=== PATIENT | male | born 1960 | race Caucasian/White ===

== ENCOUNTER 2018-05-03 13:55 | Inpatient (IN) | payer BC ==
--- NOTE | 2018-05-03 14:10 | ED ---
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 Moderate in severity dull in nature he states he had some tightness in his throat also. He states he been having episodes like this for the past 2 or 3 days with exertion or with stress. He has no personal history of heart disease he had heart disease and his family. 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 Patient had no fevers chills nausea vomiting sweats or other symptoms he is currently pain-free at this time. He was brought in by EMS. He was given 324 mg of aspirin in route.. MD Complaint: chest pain - Related Data Home Medications Medication Instructions Recorded Confirmed Aspirin 325 mg PO W/SUPPER 05/03/18 05/03/18 Multivitamins, Thera [Multivitamin 1 tab PO W/SUPPER 05/03/18 05/03/18 (formulary)] Naproxen 375 mg PO BID 05/03/18 05/03/18 Omeprazole 20 mg PO W/SUPPER 05/03/18 05/03/18 Simvastatin 40 mg PO W/SUPPER 05/03/18 05/03/18 Allergies Allergy/AdvReac Type Severity Reaction Status Date / Time No Known Allergies Allergy Verified 05/03/18 15:52 Review of Systems ROS Statement: Those systems with pertinent positive or pertinent negative responses have been documented in the HPI. ROS Other: All systems not noted in ROS Statement are negative. EKG Findings - EKG Results: EKG: interpreted by ERMD, sinus rhythm (Sinus rhythm first-degree AV block rate was 64. Interval 250 to QRS 1:30 QT since QTC 364/375 nonspecific interventricular conduction block) Past Medical History Past Medical History: No Reported History History of Any Multi-Drug Resistant Organisms: None Reported Past Surgical History: Orthopedic Surgery Additional Past Surgical History / Comment(s): right knee Past Psychological History: No Psychological Hx Reported Smoking Status: Never smoker Past Alcohol Use History: None Reported Past Drug Use History: None Reported General Exam - General Exam Comments Initial Comments: This is a well-developed well-nourished awake alert oriented 3 male Limitations: no limitations General appearance: alert, in no apparent distress Head exam: Present: atraumatic, normocephalic, normal inspection Eye exam: Present: normal appearance, PERRL, EOMI. Absent: scleral icterus, conjunctival injection, periorbital swelling ENT exam: Present: normal exam, mucous membranes moist Neck exam: Present: normal inspection, full ROM, other (No stridor JVD or bruits ). Absent: tenderness, meningismus, lymphadenopathy Respiratory exam: Present: normal lung sounds bilaterally. Absent: respiratory distress, wheezes, rales, rhonchi, stridor Cardiovascular Exam: Present: regular rate, normal rhythm, normal heart sounds. Absent: systolic murmur, diastolic murmur, rubs, gallop, clicks GI/Abdominal exam: Present: soft, normal bowel sounds. Absent: distended, tenderness, guarding, rebound, rigid Extremities exam: Present: normal inspection, full ROM, normal capillary refill. Absent: tenderness, pedal edema, joint swelling, calf tenderness Back exam: Present: normal inspection Neurological exam: Present: alert, oriented X3, CN II-XII intact Psychiatric exam: Present: normal affect, normal mood Skin exam: Present: warm, dry, intact, normal color. Absent: rash Course Vital Signs 05/03/18 05/03/18 05/03/18 13:57 14:06 15:29 Temperature 98.7 F Pulse Rate 71 62 Respiratory 18 16 18 Rate Blood Pressure 168/107 149/89 O2 Sat by Pulse 98 99 Oximetry - Reevaluation(s) Reevaluation #1: 05/03/18 15:57 Evaluation the patient he has no further chest pain. Chest Pain MDM - [facility] Patient has had for over the chest pain however his troponin is elevated. The presentation is consistent with unstable angina and elevated troponin. Patient will be admitted I did discuss case with him and his family as well as with Dr. Rhoades IV heparin will be started nitroglycerin will be started Critical Care Time Critical Care Time: Yes Critical Care Time: 31 minutes of critical care time which includes initial presentation with history physical labs x-rays per minute review. Discussed with the admitting physician admission orders and documentation of the above Disposition Clinical Impression: Unstable angina pectoris, Acute coronary syndrome Disposition: ADMITTED IP TO THIS HOSP Condition: Stable Referrals: Jose J Clifford MD [Primary Care Provider] - 1-2 days
--- NOTE | 2018-05-03 14:35 | XR ---
EXAMINATION TYPE: XR chest 2V DATE OF EXAM: 05/03/2018 COMPARISON: NONE HISTORY: Chest pain TECHNIQUE: Frontal and lateral views of the chest are obtained. FINDINGS: There is no focal air space opacity, pleural effusion, or pneumothorax seen. The cardiac silhouette size is within normal limits. The osseous structures are intact. There are cardiac leads present. Patient is rotated. Prominent lung volumes suggest underlying COPD. IMPRESSION: No acute cardiopulmonary process.
[2018-05-03 14:41] LABS: Basophils # (A) 0.1 k/uL (0-0.2); Basophils % (A) 1 %; Eosinophils # (A) 0.2 k/uL (0-0.7); Eosinophils % (A) 2 %; HCT 51.5 % (39.0-53.0); HGB 17.1 gm/dL (13.0-17.5); Lymphocytes # (A) 4.7 k/uL (1.0-4.8); Lymphocytes % (A) 46 %; MCH 29.6 pg (25.0-35.0); MCHC 33.2 g/dL (31.0-37.0); Mean Platelet Volume 9.5; Monocytes # (A) 0.7 k/uL (0-1.0); Monocytes % (A) 7 %; Neutrophils # (A) 4.2 k/uL (1.3-7.7); Neutrophils % (A) 42 %; Platelet Count 187 k/uL (150-450); RBC 5.79 m/uL (4.30-5.90); RDW 13.2 % (11.5-15.5); WBC 10.2 k/uL (3.8-10.6)
[2018-05-03 14:48] LABS: ALT 35 U/L (21-72); AST 59 U/L (17-59); Albumin 4.7 g/dL (3.5-5.0); Alkaline Phosphatase 115 U/L (38-126); Anion Gap 10 mmol/L; Blood Urea Nitrogen 21 mg/dL (9-20); Calcium 9.7 mg/dL (8.4-10.2); Carbon Dioxide 22 mmol/L (22-30); Chloride 110 mmol/L (98-107); Glucose 146 mg/dL (74-99); Sodium 142 mmol/L (137-145); Total Bilirubin 1.7 mg/dL (0.2-1.3); Total Protein 7.7 g/dL (6.3-8.2)
[2018-05-03 14:51] LABS: Potassium 5.2 mmol/L (3.5-5.1)
[2018-05-03 14:54] LABS: D-Dimer 0.29 mg/L FEU (<0.60); INR 0.9 (<1.2); Partial Thromboplastin Time 24.9 sec (22.0-30.0); Prothrombin Time 10.1 sec (9.0-12.0)
[2018-05-03] MEDS ORDERED: HEPARIN SODIUM,PORCINE 5,000 UNIT/ML 1 ML VIAL IV ONE (15:56)
[2018-05-03] MEDS ORDERED: HEPARIN SODIUM,PORCINE 5,000 UNIT/ML 1 ML VIAL IV PRN (15:56)
[2018-05-03] MEDS ORDERED: NITROGLYCERIN SL TABS 0.4 MG TAB SUBLINGUAL PRN (16:00)
[2018-05-03] MEDS ORDERED: HEPARIN SOD,PORK IN 0.45% NACL 25,000 UNIT in 0.45% NACL 1 250ML.BAG IV SCH (16:00)
[2018-05-03] MEDS ORDERED: SODIUM CHLORIDE 0.9% 1,000 ML IV SCH (16:00)
[2018-05-03] MEDS ORDERED: ATORVASTATIN 20 MG TAB PO SCH (17:30)
[2018-05-03] MEDS: NITROGLYCERIN OINT 1 INCH/GM PACKET TOPICAL SCH ×2 (17:59→23:15)
[2018-05-03] MEDS: PANTOPRAZOLE 40 MG TABLET PO SCH (17:59)
[2018-05-03] MEDS: MULTIVITAMINS, THERA 1 EACH TAB PO SCH (17:59)
[2018-05-03] MEDS ORDERED: NAPROXEN 250 MG TAB PO SCH (21:00)
[2018-05-04] MEDS: NITROGLYCERIN OINT 1 INCH/GM PACKET TOPICAL SCH (05:29)
[2018-05-04 05:30] LABS: HCT 43.6 % (39.0-53.0); HGB 14.5 gm/dL (13.0-17.5); MCH 29.6 pg (25.0-35.0); MCHC 33.2 g/dL (31.0-37.0); MCV 89.3 fL (80.0-100.0); Mean Platelet Volume 8.7; Platelet Count 164 k/uL (150-450); RBC 4.88 m/uL (4.30-5.90); RDW 13.4 % (11.5-15.5); WBC 13.2 k/uL (3.8-10.6)
[2018-05-04 05:57] LABS: Basophils # (M) 0.13 k/uL (0-0.2); Lymphocytes # (M) 5.41 k/uL (1.0-4.8); Monocytes # (M) 1.32 k/uL (0-1.0); Neutrophils # (M) 5.94 k/uL (1.3-7.7); Neutrophils % (M) 45 %; Nucleated Red Blood Cells 0 /100 WBC (0-0); Total Cells Counted 100
[2018-05-04 05:59] LABS: Cholesterol 136 mg/dL (<200); HDL Cholesterol 36 mg/dL (40-60); LDL Cholesterol,Calculated 69 mg/dL (0-99); Triglycerides 154 mg/dL (<150)
[2018-05-04] MEDS ORDERED: ASPIRIN 325 MG TAB PO SCH (09:00)
--- NOTE | 2018-05-04 09:00 | P.CRDCN ---
History of Present Illness Consult date: 05/04/18 Requesting physician: Luigi Rhoades Consult reason: chest pain Chief complaint: Chest pain History of present illness: This is a pleasant 57-year-old gentleman with history of hyperlipidemia, family history of premature coronary artery disease in his father who had bypass surgery at the age of 53, history of GERD, nondiabetic, no prior history of hypertension, he is a nonsmoker. He presents to the hospital with symptoms of left arm discomfort, and discomfort at the base of his neck and up into his throat, states that he's been getting these symptoms off and on. They, mostly with exertion and that side with rest. He does have associated shortness of breath, and yesterday was diaphoretic. His EKG initially showed a normal sinus rhythm with no acute changes, subsequent EKG which was performed this morning showed normal sinus rhythm with ST-T wave changes noted in the anterior leads. Chest x-ray did not reveal any acute process. Blood pressure on arrival 168/107, heart rate in the 70s, 98% on room air. Let pressure this morning 122/60 with a heart rate in the 50s, 95% on room air. White blood cell count 10.2 on admission, 13.2 this morning, hemoglobin 14.5, platelet count 164. His d-dimer is negative. Sodium 142, potassium 5.2, BUN 21, creatinine 1.04. Troponins 0.07, 0.2, 0.197, 0.110. Cholesterol 136, LDL 69, triglycerides 154 and HDL. At the time of my examination this morning, patient is currently chest pain-free. Past Medical History Past Medical History: Hyperlipidemia Additional Past Medical History / Comment(s): Heart burn History of Any Multi-Drug Resistant Organisms: None Reported Past Surgical History: Orthopedic Surgery Additional Past Surgical History / Comment(s): right knee X2 partial replacement Past Anesthesia/Blood Transfusion Reactions: No Reported Reaction Past Psychological History: No Psychological Hx Reported Smoking Status: Never smoker Past Alcohol Use History: None Reported Past Drug Use History: None Reported - Past Family History Father Family Medical History: CVA/TIA Additional Family Medical History / Comment(s): triple bypass surgery Mother Family Medical History: CVA/TIA, Myocardial Infarction ([place]), Renal Disease Additional Family Medical History / Comment(s): hemodialysis Medications and Allergies Home Medications Medication Instructions Recorded Confirmed Type Aspirin 325 mg PO W/SUPPER 05/03/18 05/03/18 History Multivitamins, Thera [Multivitamin 1 tab PO W/SUPPER 05/03/18 05/03/18 History (formulary)] Naproxen 375 mg PO BID 05/03/18 05/03/18 History Omeprazole 20 mg PO W/SUPPER 05/03/18 05/03/18 History Simvastatin 40 mg PO W/SUPPER 05/03/18 05/03/18 History Allergies Allergy/AdvReac Type Severity Reaction Status Date / Time No Known Allergies Allergy Verified 05/03/18 15:52 Physical Exam Vitals: Vital Signs Temp Pulse Pulse Resp BP BP Pulse Ox 05/04/18 07:35 95 05/04/18 04:00 52 L 16 122/66 95 05/03/18 23:53 57 L 05/03/18 23:48 57 L 16 147/78 95 05/03/18 20:00 98.8 F 61 16 128/71 93 L 05/03/18 17:08 98.7 F 58 L 16 143/81 95 05/03/18 16:38 98.4 F 69 18 140/85 99 05/03/18 15:29 62 18 149/89 99 05/03/18 14:06 16 05/03/18 13:57 98.7 F 71 18 168/107 98 Intake and Output 05/03/18 05/04/18 05/04/18 22:59 06:59 14:59 Intake Total 222 131.5 Balance 222 131.5 Intake: Intake, IV Titration 131.5 Amount Heparin Sod,Pork in 0.45% 131.5 NaCl 25,000 unit In 0.45 % NaCl 1 250ml.bag @ 8. 749 UNITS/KG/HR 10 mls/hr IV .Q24H [facility] Rx#: [id number] Oral 222 Other: Voiding Method Toilet # Voids 4 Weight 117.9 kg PHYSICAL EXAMINATION: GENERAL: 57-year-old gentleman in no acute distress at the time of my examination HEENT: Head is atraumatic, normocephalic. Pupils equal, round. Sclera anicteric. Conjunctiva are clear. Mucous membranes of the mouth are moist. Neck is supple. There is no elevated jugular venous pressure. No carotid bruit is heard. HEART EXAMINATION: Heart S1, S2 normal. No murmur or gallop heard. CHEST EXAMINATION: Lungs are clear to auscultation and precussion. No chest wall tenderness is noted on palpation or with deep breathing. ABDOMEN: Soft, nontender. Bowel sounds are heard. No organomegaly noted. EXTREMITIES: 2+ peripheral pulses with no evidence of peripheral edema and no calf tenderness noted. NEUROLOGIC patient is awake, alert and oriented 3 . . Results 05/04/18 05:11 05/03/18 14:16 Cardiac Enzymes 05/03/18 05/03/18 05/03/18 Range/Units 14:16 14:16 16:59 AST 59 (17-59) U/L Troponin I 0.076 H* 0.200 H* (0.000-0.034) ng/mL 05/03/18 05/04/18 Range/Units 22:29 05:11 AST (17-59) U/L Troponin I 0.197 H* 0.110 H* (0.000-0.034) ng/mL Coagulation 05/03/18 05/03/18 05/04/18 Range/Units 14:16 22:29 05:11 PT 10.1 (9.0-12.0) sec APTT 24.9 46.9 H 46.9 H (22.0-30.0) sec Lipids 05/04/18 Range/Units 05:11 Triglycerides 154 H (<150) mg/dL Cholesterol 136 (<200) mg/dL HDL Cholesterol 36 L (40-60) mg/dL CBC 05/03/18 05/04/18 Range/Units 14:16 05:11 WBC 10.2 13.2 H (3.8-10.6) k/uL RBC 5.79 4.88 (4.30-5.90) m/uL Hgb 17.1 14.5 (13.0-17.5) gm/dL Hct 51.5 43.6 (39.0-53.0) % Plt Count 187 164 (150-450) k/uL Comprehensive Metabolic Panel 05/03/18 Range/Units 14:16 Sodium 142 (137-145) mmol/L Potassium 5.2 H (3.5-5.1) mmol/L Chloride 110 H (98-107) mmol/L Carbon Dioxide 22 (22-30) mmol/L BUN 21 H (9-20) mg/dL Creatinine 1.04 (0.66-1.25) mg/dL Glucose 146 H (74-99) mg/dL Calcium 9.7 (8.4-10.2) mg/dL AST 59 (17-59) U/L ALT 35 (21-72) U/L Alkaline Phosphatase 115 (38-126) U/L Total Protein 7.7 (6.3-8.2) g/dL Albumin 4.7 (3.5-5.0) g/dL Current Medications Generic Name Dose Route Start Last Admin Trade Name Freq PRN Reason Stop Dose Admin Aspirin 325 mg 05/04/18 09:00 Aspirin PO DAILY [facility] Atorvastatin Calcium 20 mg 05/03/18 17:30 05/03/18 17:59 Lipitor PO 20 mg W/SUPPER JONAS Administration Heparin Sodium (Porcine) 0 unit 05/03/18 15:56 Heparin IV PER PROTOCOL PRN Low PTT Protocol Heparin Sodium/Sodium Chloride 250 mls @ 10 mls/hr 05/03/18 16:00 05/04/18 05 :39 25,000 unit/ Sodium Chloride IV 10.749 units/kg/hr .Q24H JONAS 12.28 mls/hr Titration Protocol 8.749 UNITS/KG/HR Sodium Chloride 1,000 mls @ 20 mls/hr 05/03/18 16:00 05/03/18 16:38 Saline 0.9% IV 20 mls/hr .Q24H JONAS Administration Multivitamins 1 each 05/03/18 17:30 05/03/18 17:59 Theragran PO 1 each W/SUPPER JONAS Administration Nitroglycerin 1 inch 05/03/18 18:00 05/04/18 05:29 Nitro-Bid Oint TOPICAL Not Given Q6HR [facility] Nitroglycerin 0.4 mg 05/03/18 16:00 Nitrostat SUBLINGUAL Q5M PRN Chest Pain Pantoprazole Sodium 40 mg 05/03/18 17:30 05/03/18 17:59 Protonix PO 40 mg W/SUPPER JONAS Administration Intake and Output 05/03/18 05/04/18 05/04/18 22:59 06:59 14:59 Intake Total 222 131.5 Balance 222 131.5 Intake: Intake, IV Titration 131.5 Amount Heparin Sod,Pork in 0.45% 131.5 NaCl 25,000 unit In 0.45 % NaCl 1 250ml.bag @ 8. 749 UNITS/KG/HR 10 mls/hr IV .Q24H [facility] Rx#: [id number] Oral 222 Other: Voiding Method Toilet # Voids 4 Weight 117.9 kg 05/04/18 05:11 05/03/18 14:16 EKG Interpretations (text) Initial EKG showed normal sinus rhythm with no acute changes. Subsequent EKG showed normal sinus rhythm with ST-T wave changes noted in the anterior leads. Assessment and Plan Plan: Assessment and plan #1 symptoms of left arm discomfort with associated neck and jaw discomfort, exertional in nature. EKG shows normal sinus rhythm with ST-T wave changes noted in the anterior leads. Abnormality in troponin. Medical picture suggestive of acute coronary syndrome. #2 hyperlipidemia #3 strong family history of premature coronary artery disease #4 GERD Plan We will obtain a stat echocardiogram with Doppler study. Continue aspirin, increase Lipitor to 80 mg daily, continue IV heparin, continue Nitropaste. We will hold off on a beta anthony at this time because of the heart rate of 50. Patient has been advised that he may need to undergo cardiac catheterization for more definitive diagnosis. Risks and benefits were explained to the patient and he is willing to proceed. Further recommendations will be based on these findings and the patient's clinical course. DNP note has been reviewed, I agree with a documented findings and plan of care. Patient was seen and examined.
[2018-05-04] MEDS ORDERED: ATORVASTATIN 80 MG TAB PO STA (09:43)
[2018-05-04] MEDS ORDERED: SODIUM CHLORIDE 0.9% 1,000 ML in EMPTY BAG 1 BAG IV ONE (09:43)
[2018-05-04] MEDS ORDERED: ASPIRIN 325 MG TAB PO STA (09:43)
[2018-05-04] MEDS ORDERED: ALPRAZolam 0.5 MG TAB PO PRN (09:43)
[2018-05-04] MEDS ORDERED: ALPRAZolam 0.25 MG TAB PO PRN (09:43)
[2018-05-04] MEDS ORDERED: NITROGLYCERIN SL TABS 0.4 MG TAB SUBLINGUAL PRN ×2 (09:43→11:14)
[2018-05-04] MEDS ORDERED: SODIUM CHLORIDE 0.9% 500 ML 500 ML IV ONE (10:08)
[2018-05-04] MEDS ORDERED: ASPIRIN 325 MG TAB ONE (10:11)
[2018-05-04] MEDS ORDERED: HEPARIN SODIUM,PORCINE 30 ML 30 ML ONE (10:11)
[2018-05-04] MEDS ORDERED: HEPARIN SODIUM 1,000 UN/ML (10ML VL) ONE (10:15)
[2018-05-04] MEDS ORDERED: VERAPAMIL 2.5 MG/ML 2 ML AMP ONE (10:15)
[2018-05-04] MEDS ORDERED: fentaNYL (PF) 50 MCG/ML 2 ML AMP ONE (10:18)
[2018-05-04] MEDS ORDERED: ASPIRIN 325 MG TAB PO ONE (10:24)
--- NOTE | 2018-05-04 10:25 | P.HPIM ---
History of Present Illness 57-year-old pleasant gentleman came in with complaints of chest pain mainly in the left arm pressure-like sensation radiating to the neck area with diaphoresis lasted for about an hour pressure-like sensation moderate severity not associated with food not nonpruritic. Patient is complaining of some lightheadedness does have some associated shortness of breath and lightheadedness. Patient pain resolved with resting and relaxing exertional in nature. Patient does have acute ST-T wave changes in anterior leads with mildly elevated troponin, second troponin after a interview the patient is also higher than the initial one is around 0.2. D-dimer is negative. Chest x-ray did not show any pneumonic process. A she is a significant family history of premature coronary artery disease in father patient does have possible history of hypertension hyperlipidemia Review of Systems REVIEW OF SYSTEMS: CONSTITUTIONAL: No fever, no malaise, no fatigue. HEENT: No recent visual problems or hearing problems. Denied any sore throat. CARDIOVASCULAR: No , orthopnea, PND, no palpitations, no syncope. PULMONARY: No shortness of breath, no cough, no hemoptysis. GASTROINTESTINAL: No diarrhea, no nausea, no vomiting, no abdominal pain. NEUROLOGICAL: No headaches, no weakness, no numbness. HEMATOLOGICAL: Denies any bleeding or petechiae. GENITOURINARY: Denies any burning micturition, frequency, or urgency. MUSCULOSKELETAL/RHEUMATOLOGICAL: Denies any joint pain, swelling, or any muscle pain. ENDOCRINE: Denies any polyuria or polydipsia. The rest of the 14-point review of systems is negative. Past Medical History Past Medical History: Hyperlipidemia Additional Past Medical History / Comment(s): Heart burn History of Any Multi-Drug Resistant Organisms: None Reported Past Surgical History: Orthopedic Surgery Additional Past Surgical History / Comment(s): right knee X2 partial replacement Past Anesthesia/Blood Transfusion Reactions: No Reported Reaction Past Psychological History: No Psychological Hx Reported Smoking Status: Never smoker Past Alcohol Use History: None Reported Past Drug Use History: None Reported - Past Family History Father Family Medical History: CVA/TIA Additional Family Medical History / Comment(s): triple bypass surgery Mother Family Medical History: CVA/TIA, Myocardial Infarction ([place]), Renal Disease Additional Family Medical History / Comment(s): hemodialysis Medications and Allergies Home Medications Medication Instructions Recorded Confirmed Type Aspirin 325 mg PO W/SUPPER 05/03/18 05/03/18 History Multivitamins, Thera [Multivitamin 1 tab PO W/SUPPER 05/03/18 05/03/18 History (formulary)] Naproxen 375 mg PO BID 05/03/18 05/03/18 History Omeprazole 20 mg PO W/SUPPER 05/03/18 05/03/18 History Simvastatin 40 mg PO W/SUPPER 05/03/18 05/03/18 History Allergies Allergy/AdvReac Type Severity Reaction Status Date / Time No Known Allergies Allergy Verified 05/03/18 15:52 Physical Exam Vitals: Vital Signs Temp Pulse Pulse Resp BP BP Pulse Ox 05/04/18 07:35 95 05/04/18 04:00 52 L 16 122/66 95 05/03/18 23:53 57 L 05/03/18 23:48 57 L 16 147/78 95 05/03/18 20:00 98.8 F 61 16 128/71 93 L 05/03/18 17:08 98.7 F 58 L 16 143/81 95 05/03/18 16:38 98.4 F 69 18 140/85 99 05/03/18 15:29 62 18 149/89 99 05/03/18 14:06 16 05/03/18 13:57 98.7 F 71 18 168/107 98 Intake and Output 05/03/18 05/04/18 05/04/18 22:59 06:59 14:59 Intake Total 222 131.5 Balance 222 131.5 Intake: Intake, IV Titration 131.5 Amount Heparin Sod,Pork in 0.45% 131.5 NaCl 25,000 unit In 0.45 % NaCl 1 250ml.bag @ 8. 749 UNITS/KG/HR 10 mls/hr IV .Q24H [facility] Rx#: [id number] Oral 222 Other: Voiding Method Toilet # Voids 4 Weight 117.9 kg PHYSICAL EXAMINATION: GENERAL: The patient is alert and oriented x3, not in any acute distress. Well developed, well nourished. HEENT: Pupils are round and equally reacting to light. EOMI. No scleral icterus. No conjunctival pallor. Normocephalic, atraumatic. No pharyngeal erythema. No thyromegaly. CARDIOVASCULAR: S1 and S2 present. No murmurs, rubs, or gallops. PULMONARY: Chest is clear to auscultation, no wheezing or crackles. ABDOMEN: Soft, nontender, nondistended, normoactive bowel sounds. No palpable organomegaly. MUSCULOSKELETAL: No joint swelling or deformity. EXTREMITIES: No cyanosis, clubbing, or pedal edema. NEUROLOGICAL: Gross neurological examination did not reveal any focal deficits. SKIN: No rashes. Results CBC & Chem 7: 05/04/18 05:11 05/03/18 14:16 Labs: Abnormal Lab Results - Last 24 Hours (Table) 05/03/18 05/03/18 05/03/18 Range/Units 14:16 14:16 16:59 WBC (3.8-10.6) k/uL Lymphocytes # (Manual) (1.0-4.8) k/uL Monocytes # (Manual) (0-1.0) k/uL APTT (22.0-30.0) sec Potassium 5.2 H (3.5-5.1) mmol/L Chloride 110 H (98-107) mmol/L BUN 21 H (9-20) mg/dL Glucose 146 H (74-99) mg/dL Total Bilirubin 1.7 H (0.2-1.3) mg/dL Troponin I 0.076 H* 0.200 H* (0.000-0.034) ng/mL Triglycerides (<150) mg/dL HDL Cholesterol (40-60) mg/dL 05/03/18 05/03/18 05/04/18 Range/Units 22:29 22:29 05:11 WBC 13.2 H (3.8-10.6) k/uL Lymphocytes # (Manual) 5.41 H (1.0-4.8) k/uL Monocytes # (Manual) 1.32 H (0-1.0) k/uL APTT 46.9 H (22.0-30.0) sec Potassium (3.5-5.1) mmol/L Chloride (98-107) mmol/L BUN (9-20) mg/dL Glucose (74-99) mg/dL Total Bilirubin (0.2-1.3) mg/dL Troponin I 0.197 H* (0.000-0.034) ng/mL Triglycerides (<150) mg/dL HDL Cholesterol (40-60) mg/dL 03/02/19 03/02/19 03/02/19 Range/Units 05:11 05:11 05:11 WBC (3.8-10.6) k/uL Lymphocytes # (Manual) (1.0-4.8) k/uL Monocytes # (Manual) (0-1.0) k/uL APTT 46.9 H (22.0-30.0) sec Potassium (3.5-5.1) mmol/L Chloride (98-107) mmol/L BUN (9-20) mg/dL Glucose (74-99) mg/dL Total Bilirubin (0.2-1.3) mg/dL Troponin I 0.110 H* (0.000-0.034) ng/mL Triglycerides 154 H (<150) mg/dL HDL Cholesterol 36 L (40-60) mg/dL Thrombosis Risk Factor Assmnt - Choose All That Apply Any of the Below Risk Factors Present?: Yes Each Factor Represents 1 point: Age 41-60 years Thrombosis Risk Factor Assessment Total Risk Factor Score: 1 Thrombosis Risk Factor Assessment Level: Low Risk Assessment and Plan Plan: -Possible non-ST elevation myocardial patient does have typical chest pain, cardiology will evaluate the patient patient was started on IV heparin echocardiogram will be obtained patient probably will need cardiac catheterization -Hyperlipidemia -Hypertension next and heparin gastroesophageal reflux disease
[2018-05-04] MEDS ORDERED: fentaNYL (PF) 50 MCG/ML 2 ML AMP IVP ONE (10:26)
[2018-05-04] MEDS ORDERED: MIDAZOLAM 2 MG/2 ML VIAL IVP ONE (10:27)
[2018-05-04] MEDS ORDERED: LIDOCAINE 1% INJ 10MG/ML (20 ML MDV) SQ ONE ×2 (10:30)
[2018-05-04] MEDS ORDERED: VERAPAMIL SYRINGE (5 MG/10 ML) INTRAARTER ONE ×2 (10:32→10:33)
[2018-05-04] MEDS ORDERED: TICAGRELOR 90 MG TAB ONE (10:41)
[2018-05-04] MEDS ORDERED: TICAGRELOR 90 MG TAB PO ONE (10:51)
[2018-05-04] MEDS ORDERED: BIVALIRUDIN BOLUS 250 MG/50 ML IV ONE (10:52)
[2018-05-04] MEDS ORDERED: BIVALIRUDIN 250 MG in SODIUM CHLORIDE 0.9% 50 ML IV ONE (10:53)
[2018-05-04] MEDS ORDERED: NITROGLYCERIN 1000MCG/10ML SYRINGE INTRACORON ONE (10:56)
--- NOTE | 2018-05-04 11:00 | P.CARDCATH ---
Date of Procedure: 05/04/18 Preoperative Diagnosis: Non-STEMI Postoperative Diagnosis: Critical lesion involving the proximal LAD Procedure(s) Performed: Left heart catheterization with left ventriculography Description of Procedure: HISTORY: This is a 57-year-old gentleman with strong family history of ischemic heart disease who was brought to the hospital with significant left arm pain, throat pain associated shortness of breath and sweating. His EKG showed T-wave changes in anterior leads. His troponin values are abnormal. Patient is advised to have cardiac catheterization for definitive diagnosis and further intervention as needed CONSENT:I have discussed the risks, benefits and alternative therapies for the above-mentioned procedure and for both sedation/analgesia as well as necessary blood product administration, if indicated, as they pertain to this patient. The patient has indicated understanding and acceptance of the risks and procedures discussed. PROCEDURE: Patient was brought to the lab in a fasting state. Patient was given some IV sedation. The right wrist is infiltrated with lidocaine and right radial artery was entered using Seldinger technique. A 6-German catheter was left in place and selective coronary arteriography and left ventriculography was performed. Patient tolerated the procedure well. Patient is found to have critical lesion in the proximal LAD and went on to have stent placement by Dr. Garcia Conscious Sedation: Versed 1mg Fentanyl 50 g Duration 16minutes HEMODYNAMICS: The aortic pressure is about 140-150/88. Left ventricle end- diastolic pressure was 20 to 24 SELECTIVE CORONARY ARTERIOGRAPHY: LEFT MAIN: Short and divides into left anterior descending and left circumflex immediately. Free of any significant disease THE LEFT ANTERIOR DESCENDING CORONARY ARTERY:. This is a good caliber vessel with about 95% stenosis in the proximal portion. The LAD wraps around the apex. Rest of the LAD and branches are free of occlusive disease THE LEFT CIRCUMFLEX AND IS CORONARY ARTERY:. This is a moderate caliber vessel giving rise to good-sized OM branch. The circumflex and its branches are free of any significant occlusive disease THE RIGHT CORONARY ARTERY: Is a good caliber vessel and dominant. Free of any occlusive disease LEFT VENTRICULOGRAPHY:. This revealed cytologic left ventricle with hypokinesis of the anteroapical segment. Ejection fraction is about 40% FINAL IMPRESSION: Critical lesion along the proximal LAD. Rest of the system is free of any significant occlusive has PLAN: Stent placement of LAD being done by Dr. Garcia PROGNOSIS: Fair
[2018-05-04] MEDS ORDERED: IOPAMIDOL-370 50ML BTL INJ ONE (11:02)
[2018-05-04] MEDS ORDERED: IOPAMIDOL-370 150ML BTL INJ ONE (11:03)
[2018-05-04] MEDS ORDERED: ZOLPIDEM 5 MG TAB PO PRN (11:14)
[2018-05-04] MEDS ORDERED: ATROPINE SULFATE 0.1 MG/ML 10ML SYRINGE IV PRN (11:14)
[2018-05-04] MEDS ORDERED: RX INFO: IV CONTRAST WAS GIVEN 1 EACH MISC MISCELLANE PRN (11:14)
[2018-05-04] MEDS ORDERED: MAG HYDROX/AL HYDROX/SIMETH 30 ML CUP PO PRN (11:14)
[2018-05-04] MEDS ORDERED: SODIUM CHLORIDE 0.9% 1,000 ML IV SCH (11:15)
[2018-05-04 14:03] VITALS: BMI 34.2
--- NOTE | 2018-05-04 15:21 | PTCA ---
PERCUTANEOUSTRANS CORORONARY ANGIOGRAPHY Mr. Santos is a 57-year-old male who presented with symptoms of chest discomfort associated with T-wave inversion anteriorly and troponin elevation. He underwent cardiac catheterization by Dr. Montez and was found to have critical stenosis involving the proximal LAD. In view of that, recommendation was made regarding angioplasty and stenting. The procedure as well as its risks and complication were discussed with the patient, who was in full understanding and agreement. PROCEDURE: A 6-Japanese FL 3.5 guiding catheter was introduced into the system after cannulating the left main. A 0.014 balanced medium-weight J-wire was advanced across the lesion and positioned in the distal LAD. Following that, a 3.5 x 15 mm Xience Diana stent was deployed and post dilated at 16 atmospheres. After the last inflation, after appropriate wait, the balloon and the guidewire were withdrawn back into the guiding catheter. Images were obtained and repeated. Those images revealed stable successful stenting. At that point, the guiding catheter, the balloon and the guidewire were removed. Sheath was removed. Hemostasis was obtained with deployment of TR band. There was no immediate complication. Patient was returned to his room in stable condition. Of note, the patient received Angiomax per protocol as well as oral loading dose of Brilinta. He had EKG changes with the inflation without significant chest discomfort. RESULTS: Successful stenting of the proximal LAD with reduction of stenosis from 99% to 0%. RECOMMENDATION: Patient will be continued on aspirin, Brilinta, beta anthony, INDIO inhibitor and statin. The importance of dual antiplatelet treatment was discussed with the patient and his family. They are in full understanding and agreement. Duration of the procedure was 19 minutes. MMODL / IJN: [id number] /
--- NOTE | 2018-05-04 16:12 | P.PN ---
Subjective 57-year-old admitted for non-ST elevation microinfarction a found to have stenosis of the LAD, underwent cardiac catheter, will undergo stenting to LAD. Constitutional: Denied any fatigue denied any fever. Cardio vascular: denied any chest pain, palpitations Gastrointestinal denied any nausea vomiting Pulmonary: Denied any shortness of breath cough Neurologic denied any new focal deficits All inpatient medications were reviewed and appropriate changes in these medications as dictated in the interval history and assessment and plan. Objective - Vital Signs Vital signs: Vital Signs Temp 97.1 F L 05/04/18 15:59 Pulse 56 L 05/04/18 15:59 Resp 18 05/04/18 15:59 BP 125/72 05/04/18 15:59 Pulse Ox 94 L 05/04/18 15:59 Intake & Output 05/03/18 05/04/18 05/04/18 18:59 06:59 18:59 Intake Total 222 131.5 274.7 Output Total 300 Balance 222 131.5 -25.3 Weight 114.3 kg 117.9 kg 117.9 kg Intake: IV 154.7 Intake, IV Titration 131.5 Amount Heparin Sod,Pork in 0.45% 131.5 NaCl 25,000 unit In 0.45 % NaCl 1 250ml.bag @ 8. 749 UNITS/KG/HR 10 mls/hr IV .Q24H [facility] Rx#: [id number] Oral 222 120 Output: Urine 300 Other: Voiding Method Toilet Toilet # Voids 4 0 - Exam PHYSICAL EXAMINATION: GENERAL: The patient is alert and oriented x3, not in any acute distress. Well developed, well nourished. HEENT: Pupils are round and equally reacting to light. EOMI. No scleral icterus. No conjunctival pallor. Normocephalic, atraumatic. No pharyngeal erythema. No thyromegaly. CARDIOVASCULAR: S1 and S2 present. No murmurs, rubs, or gallops. PULMONARY: Chest is clear to auscultation, no wheezing or crackles. ABDOMEN: Soft, nontender, nondistended, normoactive bowel sounds. No palpable organomegaly. MUSCULOSKELETAL: No joint swelling or deformity. EXTREMITIES: No cyanosis, clubbing, or pedal edema. NEUROLOGICAL: Gross neurological examination did not reveal any focal deficits. SKIN: No rashes. - Labs CBC & Chem 7: 05/04/18 05:11 03/01/19 14:16 Labs: Abnormal Lab Results - Last 24 Hours (Table) 05/03/18 05/03/18 05/03/18 Range/Units 16:59 22:29 22:29 WBC (3.8-10.6) k/uL Lymphocytes # (Manual) (1.0-4.8) k/uL Monocytes # (Manual) (0-1.0) k/uL APTT 46.9 H (22.0-30.0) sec Troponin I 0.200 H* 0.197 H* (0.000-0.034) ng/mL Triglycerides (<150) mg/dL HDL Cholesterol (40-60) mg/dL 05/04/18 05/04/18 05/04/18 Range/Units 05:11 05:11 05:11 WBC 13.2 H (3.8-10.6) k/uL Lymphocytes # (Manual) 5.41 H (1.0-4.8) k/uL Monocytes # (Manual) 1.32 H (0-1.0) k/uL APTT (22.0-30.0) sec Troponin I 0.110 H* (0.000-0.034) ng/mL Triglycerides 154 H (<150) mg/dL HDL Cholesterol 36 L (40-60) mg/dL 05/04/18 Range/Units 05:11 WBC (3.8-10.6) k/uL Lymphocytes # (Manual) (1.0-4.8) k/uL Monocytes # (Manual) (0-1.0) k/uL APTT 46.9 H (22.0-30.0) sec Troponin I (0.000-0.034) ng/mL Triglycerides (<150) mg/dL HDL Cholesterol (40-60) mg/dL Assessment and Plan Plan: - non-ST elevation myocardial infarction patient had stenosis of LAD will undergo stenting of LAD today continue with IV heparin beta anthony dual antiplatelet therapy -Hyperlipidemia -Hypertension gastroesophageal reflux disease
--- NOTE | 2018-05-04 16:24 | ECHOF ---
Referral Reason:chest pain MEASUREMENTS -------- HEIGHT: 180.3 cm WEIGHT: 117.9 kg BP: RVIDd: 3.2 cm (< 3.3) IVSd: 1.4 cm (0.6 - 1.1) LVIDd: 4.1 cm (3.9 - 5.3) LVPWd: 1.4 cm (0.6 - 1.1) IVSs: 2.0 cm LVIDs: 2.5 cm LVPWs: 2.0 cm LAESV Index (A-L): 27.12 ml/m Ao Diam: 3.2 cm (2.0 - 3.7) AV Cusp: 2.0 cm (1.5 - 2.6) LA Diam: 3.8 cm (2.7 - 3.8) MV EXCURSION: 20.651 mm (> 18.000) MV EF SLOPE: 92 mm/s (70 - 150) EPSS: 0.7 cm MV E Mannie: 0.79 m/s MV DecT: 271 ms MV A Mannie: 0.64 m/s MV E/A Ratio: 1.23 RAP: 5.00 mmHg RVSP: 9.20 mmHg FINDINGS -------- Resting bradycardia (HR<60bpm). This was a technically good study. The left ventricular size is normal. There is moderate concentric left ventricular hypertrophy. O verall left ventricular systolic function is normal with, an EF between 55 - 60 %. The right ventricle is normal in size and function. The left atrium is normal in size. The right atrium is normal in size. The aortic valve is trileaflet and appears structurally normal. The mitral valve leaflets are mildly thickened. There is trace mitral regurgitation. Trace tricuspid regurgitation present. The right ventricular systolic pressure, as measured by Dopp ler, is 9.20mmHg. Pulmonic valve appears structurally normal. The aortic root size is normal. Normal inferior vena cava with normal inspiratory collapse consistent with estimated right atrial pre ssure of 5 mmHg. The pericardium is normal. CONCLUSIONS -------- 1. Resting bradycardia (HR<60bpm). 2. This was a technically good study. 3. The left ventricular size is normal. 4. There is moderate concentric left ventricular hypertrophy. 5. Overall left ventricular systolic function is normal with, an EF between 55 - 60 %. 6. The right ventricle is normal in size and function. 7. The left atrium is normal in size. 8. The right atrium is normal in size. 9. The aortic valve is trileaflet and appears structurally normal. 10. The mitral valve leaflets are mildly thickened. 11. There is trace mitral regurgitation. 12. Trace tricuspid regurgitation present. 13. The right ventricular systolic pressure, as measured by Doppler, is 9.20mmHg. 14. Pulmonic valve appears structurally normal. 15. The aortic root size is normal. 16. Normal inferior vena cava with normal inspiratory collapse consistent with estimated right atrial pressure of 5 mmHg. 17. The pericardium is normal. BROADCAST TRAFFIC COORDINATOR: Ashley Irvin RDCS
[2018-05-04] MEDS: PANTOPRAZOLE 40 MG TABLET PO SCH (17:10)
[2018-05-04] MEDS: MULTIVITAMINS, THERA 1 EACH TAB PO SCH (17:10)
[2018-05-04] MEDS: ATORVASTATIN 80 MG TAB PO SCH (19:41)
[2018-05-04] MEDS: LISINOPRIL 5 MG TAB PO SCH (19:41)
[2018-05-04] MEDS: METOPROLOL TARTRATE 25 MG TAB PO SCH (21:15)
[2018-05-05 06:35] LABS: Potassium 4.5 mmol/L (3.5-5.1)
[2018-05-05] MEDS: SPIRONOLACTONE 25 MG TAB PO SCH (09:08)
[2018-05-05] MEDS: METOPROLOL TARTRATE 25 MG TAB PO SCH ×3 (09:08→20:52)
[2018-05-05] MEDS: ASPIRIN 81 MG PO SCH (09:08)
[2018-05-05] MEDS: LISINOPRIL 5 MG TAB PO SCH ×2 (09:08→19:54)
[2018-05-05] MEDS: TICAGRELOR 90 MG TAB PO SCH ×2 (09:09→19:54)
--- NOTE | 2018-05-05 11:22 | P.PN ---
Subjective This is pleasant 57-year-old male past medical history significant for dyslipidemia and significant family history of coronary artery disease. He underwent successful stent placement to the proximal LAD. He is currently maintained on brillinta 90 mg twice a day, Aldactone 25 mg daily, Lopressor 25 mg twice a day, lisinopril 5 mg daily, atorvastatin 80 mg daily and aspirin 81 mg daily. Blood pressure 138/59 heart rate 57 afebrile maintaining oxygen saturation on room air. Telemetry tracings have been unremarkable. Echo reveals preserved LV systolic function with EF 55-60%. he denies symptoms of chest pain , shortness of breath, dizziness, left arm pain or palpitations. He states he has been up walking the halls with no symptoms exertional chest discomfort or arm pain similar to prior to stent placement. GENERAL: Well-appearing, well-nourished and in no acute distress. NECK: Supple without JVD or thyromegaly. LUNGS: Breath sounds clear to auscultation bilaterally. Respiration equal and unlabored. No wheezes, rales or rhonchi. HEART: Regular rate and rhythm without murmurs, rubs or gallops. S1 and S2 heard. EXTREMITIES: Normal range of motion, no edema. No clubbing or cyanosis. Peripheral pulses intact. Right radial artery site soft, dry and intact with no evidence of hematoma, bleeding or ecchymosis. ASSESSMENT Acute non-ST elevated myocardia infarction Dyslipidemia GERD PLAN Hemodynamically stable, no chest pain or shortness of breath. Currently maintained on dual anti-platelet therapy. Follow up in the office with Dr. Montez in 1 week. Nurse Practitioner note has been reviewed, I agree with a documented findings and plan of care. Patient was seen and examined. Objective - Vital Signs Vital signs: Vital Signs Temp 97.2 F L 05/05/18 08:00 Pulse 57 L 05/05/18 08:00 Resp 16 05/05/18 08:00 BP 138/59 05/05/18 08:00 Pulse Ox 95 05/05/18 08:00 Intake & Output 05/04/18 05/05/18 05/05/18 18:59 06:59 18:59 Intake Total 514.7 900 Output Total 300 Balance 214.7 900 Weight 117.9 kg 117.5 kg Intake: IV 154.7 Oral 360 900 Output: Urine 300 Other: Voiding Method Toilet Toilet Toilet # Voids 1 3 3 - Labs CBC & Chem 7: 05/04/18 05:11 05/05/18 05:57 Labs: Abnormal Lab Results - Last 24 Hours (Table) 05/05/18 Range/Units 05:57 Chloride 108 H (98-107) mmol/L Glucose 122 H (74-99) mg/dL
--- NOTE | 2018-05-05 11:31 | P.PN ---
Subjective 57-year-old admitted for non-ST elevation microinfarction a found to have stenosis of the LAD, underwent cardiac catheter, will undergo stenting to LAD. 05/05/2018 Patient underwent stenting to LAD ration will be monitored overnight patient is chest pain-free possibly of discharge tomorrow. Constitutional: Denied any fatigue denied any fever. Cardio vascular: denied any chest pain, palpitations Gastrointestinal denied any nausea vomiting Pulmonary: Denied any shortness of breath cough Neurologic denied any new focal deficits All inpatient medications were reviewed and appropriate changes in these medications as dictated in the interval history and assessment and plan. Objective - Vital Signs Vital signs: Vital Signs Temp 97.2 F L 05/05/18 08:00 Pulse 57 L 05/05/18 08:00 Resp 16 05/05/18 08:00 BP 138/59 05/05/18 08:00 Pulse Ox 95 05/05/18 08:00 Intake & Output 05/04/18 05/05/18 05/05/18 18:59 06:59 18:59 Intake Total 514.7 900 Output Total 300 Balance 214.7 900 Weight 117.9 kg 117.5 kg Intake: IV 154.7 Oral 360 900 Output: Urine 300 Other: Voiding Method Toilet Toilet Toilet # Voids 1 3 3 - Exam PHYSICAL EXAMINATION: GENERAL: The patient is alert and oriented x3, not in any acute distress. Well developed, well nourished. HEENT: Pupils are round and equally reacting to light. EOMI. No scleral icterus. No conjunctival pallor. Normocephalic, atraumatic. No pharyngeal erythema. No thyromegaly. CARDIOVASCULAR: S1 and S2 present. No murmurs, rubs, or gallops. PULMONARY: Chest is clear to auscultation, no wheezing or crackles. ABDOMEN: Soft, nontender, nondistended, normoactive bowel sounds. No palpable organomegaly. MUSCULOSKELETAL: No joint swelling or deformity. EXTREMITIES: No cyanosis, clubbing, or pedal edema. NEUROLOGICAL: Gross neurological examination did not reveal any focal deficits. SKIN: No rashes. - Labs CBC & Chem 7: 05/04/18 05:11 05/05/18 05:57 Labs: Abnormal Lab Results - Last 24 Hours (Table) 05/05/18 Range/Units 05:57 Chloride 108 H (98-107) mmol/L Glucose 122 H (74-99) mg/dL Assessment and Plan Plan: - non-ST elevation myocardial infarction patient had stenosis of LAD will undergo stenting of LAD today continue beta anthony dual antiplatelet therapy. -Hyperlipidemia -Hypertension gastroesophageal reflux disease
[2018-05-05] MEDS: PANTOPRAZOLE 40 MG TABLET PO SCH (17:21)
[2018-05-05] MEDS: MULTIVITAMINS, THERA 1 EACH TAB PO SCH (17:21)
[2018-05-05] MEDS: ATORVASTATIN 80 MG TAB PO SCH (19:54)
[2018-05-06 08:12] VITALS: RESP 16
[2018-05-06] MEDS: METOPROLOL TARTRATE 25 MG TAB PO SCH (08:53)
[2018-05-06] MEDS: ASPIRIN 81 MG PO SCH (08:53)
[2018-05-06] MEDS: TICAGRELOR 90 MG TAB PO SCH (08:53)
[2018-05-06] MEDS: LISINOPRIL 5 MG TAB PO SCH (08:53)
[2018-05-06] MEDS: SPIRONOLACTONE 25 MG TAB PO SCH (08:53)
[2018-05-06 11:51] VITALS: BP 148/94; PULSE 60; TEMP 98
--- NOTE | 2018-05-06 13:16 | P.DS ---
Providers Date of admission: 05/03/18 16:00 Attending physician: Luigi Rhoades Consults: 05/03/18 16:00 Consult Physician Urgent Consulting Provider: Lucius Garcia Consult Reason/Comments: Chest pain, elevated troponin Do you want consulting provider notified?: Yes 05/04/18 11:14 Consult Physician Routine Consulting Provider: [facility] Consult Reason/Comments: Post Interventional patient Do you want consulting provider notified?: Already Contacted Primary care physician: Jose J Clifford Hospital Course: 57-year-old admitted for non-ST elevation microinfarction a found to have stenosis of the LAD, underwent cardiac catheter, will undergo stenting to LAD. 05/05/2018 Patient underwent stenting to LAD.will be monitored overnight patient is chest pain-free possibly of discharge tomorrow. 05/06/2018 patient is clinically doing well and is being discharged today in stable medical condition to home PHYSICAL EXAMINATION: GENERAL: The patient is alert and oriented x3, not in any acute distress. Well developed, well nourished. HEENT: Pupils are round and equally reacting to light. EOMI. No scleral icterus. No conjunctival pallor. Normocephalic, atraumatic. No pharyngeal erythema. No thyromegaly. CARDIOVASCULAR: S1 and S2 present. No murmurs, rubs, or gallops. PULMONARY: Chest is clear to auscultation, no wheezing or crackles. ABDOMEN: Soft, nontender, nondistended, normoactive bowel sounds. No palpable organomegaly. MUSCULOSKELETAL: No joint swelling or deformity. EXTREMITIES: No cyanosis, clubbing, or pedal edema. NEUROLOGICAL: Gross neurological examination did not reveal any focal deficits. SKIN: No rashes. Assessment and Plan Plan: - non-ST elevation myocardial infarction patient had stenosis of LAD will undergo stenting of LAD today continue beta anthony dual antiplatelet therapy. -Hyperlipidemia -Hypertension gastroesophageal reflux disease Patient Condition at Discharge: Stable Plan - Discharge Summary Discharge Rx Participant: Yes New Discharge Prescriptions: New Atorvastatin [Lipitor] 80 mg PO HS #90 tab Ticagrelor [Brilinta] 90 mg PO BID #180 tab Aspirin 81 mg PO DAILY #30 chew Lisinopril [Zestril] 5 mg PO BID #60 tab Metoprolol Tartrate [Lopressor] 25 mg PO BID #60 tab Nitroglycerin Sl Tabs [Nitrostat] 0.4 mg SUBLINGUAL Q5M PRN #25 tab PRN Reason: Chest Pain Spironolactone [Aldactone] 25 mg PO DAILY #30 tab Discontinued Simvastatin 40 mg PO W/SUPPER Aspirin 325 mg PO W/SUPPER No Action Naproxen 375 mg PO BID Multivitamins, Thera [Multivitamin (formulary)] 1 tab PO W/SUPPER Omeprazole 20 mg PO W/SUPPER Discharge Medication List Multivitamins, Thera [Multivitamin (formulary)] 1 tab PO W/SUPPER 05/03/18 [ History] Naproxen 375 mg PO BID 05/03/18 [History] Omeprazole 20 mg PO W/SUPPER 05/03/18 [History] Atorvastatin [Lipitor] 80 mg PO HS #90 tab 05/05/18 [Rx] Ticagrelor [Brilinta] 90 mg PO BID #180 tab 05/05/18 [Rx] Aspirin 81 mg PO DAILY #30 chew 05/06/18 [Rx] Lisinopril [Zestril] 5 mg PO BID #60 tab 05/06/18 [Rx] Metoprolol Tartrate [Lopressor] 25 mg PO BID #60 tab 05/06/18 [Rx] Nitroglycerin Sl Tabs [Nitrostat] 0.4 mg SUBLINGUAL Q5M PRN #25 tab 05/06/18 [Rx ] Spironolactone [Aldactone] 25 mg PO DAILY #30 tab 05/06/18 [Rx] Follow up Appointment(s)/Referral(s): Jose J Clifford MD [Primary Care Provider] - 05/09/18 9:00 am () Reece Montez MD [STAFF PHYSICIAN] - 05/14/18 3:30 pm (Sunday) Patient Instructions/Handouts: *Surgery [facility] - After Heart Catheterization - 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
--- NOTE | 2018-05-06 14:59 | P.PN ---
Subjective Progress Note Date: 05/06/18 This is pleasant 57-year-old male past medical history significant for dyslipidemia and significant family history of coronary artery disease. He underwent successful stent placement to the proximal LAD. He is currently maintained on brillinta 90 mg twice a day, Aldactone 25 mg daily, Lopressor 25 mg twice a day, lisinopril 5 mg daily, atorvastatin 80 mg daily and aspirin 81 mg daily. Blood pressure 138/59 heart rate 57 afebrile maintaining oxygen saturation on room air. Telemetry tracings have been unremarkable. Echo reveals preserved LV systolic function with EF 55-60%. he denies symptoms of chest pain , shortness of breath, dizziness, left arm pain or palpitations. He states he has been up walking the halls with no symptoms exertional chest discomfort or arm pain similar to prior to stent placement. 05/06/2018 Patient seen and examined this morning, a repeat echocardiogram with Doppler study was performed which revealed a normal left ventricular function. He may be able to be discharged home today from cardiology's perspective, we will make him a follow-up appointment in the office with Dr. Montez post discharge. Objective - Vital Signs Vital signs: Vital Signs Temp 98.0 F 05/06/18 11:49 Pulse 60 05/06/18 11:49 Resp 16 05/06/18 11:49 BP 148/94 05/06/18 11:49 Pulse Ox 98 05/06/18 11:49 Intake & Output 05/05/18 05/06/18 05/06/18 18:59 06:59 18:59 Intake Total 1230 660 Balance 1230 660 Weight 116.9 kg Intake: Oral 1230 660 Other: Voiding Method Toilet Toilet # Voids 2 2 2 - Exam GENERAL: Well-appearing, well-nourished and in no acute distress. NECK: Supple without JVD or thyromegaly. LUNGS: Breath sounds clear to auscultation bilaterally. Respiration equal and unlabored. No wheezes, rales or rhonchi. HEART: Regular rate and rhythm without murmurs, rubs or gallops. S1 and S2 heard. EXTREMITIES: Normal range of motion, no edema. No clubbing or cyanosis. Peripheral pulses intact. Right radial artery site soft, dry and intact with no evidence of hematoma, bleeding or ecchymosis. - Labs CBC & Chem 7: 05/04/18 05:11 05/05/18 05:57 Assessment and Plan Plan: Assessment and plan #1 symptoms of left arm discomfort with associated neck and jaw discomfort, exertional in nature. EKG shows normal sinus rhythm with ST-T wave changes noted in the anterior leads. Abnormality in troponin. Medical picture suggestive of acute coronary syndrome. Status post angioplasty and stenting of the LAD #2 hyperlipidemia #3 strong family history of premature coronary artery disease #4 GERD Plan From cardiology's perspective, patient may be discharged home, follow-up appointment with Dr. Montez in the office in one week. Patient will be discharged home on aspirin 81 mg daily, Lipitor 80 mg daily, Zestril 5 mg twice a day, Lopressor 25 mg one tablet twice a day , Aldactone 25 mg daily, Brilinta 90 mg twice a day and sublingual nitroglycerin as needed for chest pain. Repeat echo this morning showed a normal left ventricular systolic function. DNP note has been reviewed, I agree with a documented findings and plan of care. Patient was seen and examined.
== END 2018-05-06 14:02 | disposition home or self-care (01) | DRG 247 ==
LOC: EC 13:55 → 3SCARD 16:00
PROVIDERS: ADMIT Internal Medicine; ATTEND Internal Medicine
PROC: B2111ZZ Fluoroscopy of Multiple Coronary Arteries using Low Osmolar Contrast (ICD-10-PCS; 2018-05-04)
PROC: B2151ZZ Fluoroscopy of Left Heart using Low Osmolar Contrast (ICD-10-PCS; 2018-05-04)
PROC: 027034Z Dilation of Coronary Artery, One Artery with Drug-eluting Intraluminal Device, Percutaneous Approach (ICD-10-PCS; principal; 2018-05-04 09:59)
PROC: 4A023N7 Measurement of Cardiac Sampling and Pressure, Left Heart, Percutaneous Approach (ICD-10-PCS; 2018-05-04 09:59)
DX: I21.4 Non-ST elevation (NSTEMI) myocardial infarction (principal); I25.110 Atherosclerotic heart disease of native coronary artery with unstable angina pectoris; E78.5 Hyperlipidemia, unspecified; I44.0 Atrioventricular block, first degree; I10 Essential (primary) hypertension; K21.9 Gastro-esophageal reflux disease without esophagitis; Z79.82 Long term (current) use of aspirin; Z79.1 Long term (current) use of non-steroidal anti-inflammatories (NSAID); Z79.899 Other long term (current) drug therapy; Z82.49 Family history of ischemic heart disease and other diseases of the circulatory system; Z96.651 Presence of right artificial knee joint; Z82.3 Family history of stroke; Z84.1 Family history of disorders of kidney and ureter
CPT/HCPCS: 36415; 71046; 80048; 80053; 80061; 83735; 83880; 84484; 85025; 85347; 85379; 85610; 85730; 93306; 93458; 94760; 96374; 99291; C1874

== ENCOUNTER 2020-08-26 15:28 | Emergency (ER) | payer BC ==
[2020-08-26 16:15] VITALS: TEMP 98.1
[2020-08-26] MEDS ORDERED: HYDROcodone/APAP 5-325MG 1 EACH TAB PO STA (17:16)
--- NOTE | 2020-08-26 17:50 | ED ---
General Adult HPI - General Chief complaint: Syncope Stated complaint: achilles tendon injury Time Seen by Provider: 08/26/20 16:41 Source: patient Mode of arrival: ambulatory Limitations: no limitations - History of Present Illness Initial comments: This 60-year-old male presents with a complaint of right leg pain at the Achilles region. He apparently was pushing a cart when he heard a snap and developed severe pain into his right Achilles region. He states that this occurred shortly prior to arrival. The pain was fairly severe and he apparently had a syncopal episode. He relates having syncopal episodes previously with pain episodes. He denies any other injuries. He denies any chest pain, shortness of breath, fevers, chills or other symptoms. He is unable to ambulate on his right leg since this event. - Related Data Home Medications Medication Instructions Recorded Confirmed Multivitamins, Thera [Multivitamin 1 tab PO W/SUPPER 05/03/18 05/03/18 (formulary)] Naproxen 375 mg PO BID 05/03/18 05/03/18 Omeprazole 20 mg PO W/SUPPER 05/03/18 05/03/18 Previous Rx's Medication Instructions Recorded Atorvastatin [Lipitor] 80 mg PO HS #90 tab 05/05/18 Ticagrelor [Brilinta] 90 mg PO BID #180 tab 05/05/18 Aspirin 81 mg PO DAILY #30 chew 05/06/18 Metoprolol Tartrate [Lopressor] 25 mg PO BID #60 tab 05/06/18 Nitroglycerin Sl Tabs [Nitrostat] 0.4 mg SUBLINGUAL Q5M PRN #25 tab 05/06/18 Spironolactone [Aldactone] 25 mg PO DAILY #30 tab 05/06/18 lisinopriL [Zestril] 5 mg PO BID #60 tab 05/06/18 HYDROcodone/APAP 5-325MG [Deerton 5] 1 - 2 each PO Q6HR PRN #15 tab 08/26/20 Allergies Allergy/AdvReac Type Severity Reaction Status Date / Time No Known Allergies Allergy Verified 08/26/20 16:15 Review of Systems ROS Statement: Those systems with pertinent positive or pertinent negative responses have been documented in the HPI. ROS Other: All systems not noted in ROS Statement are negative. Past Medical History Past Medical History: Diabetes Mellitus, Hyperlipidemia, Myocardial Infarction ([place]) Additional Past Medical History / Comment(s): Heart burn History of Any Multi-Drug Resistant Organisms: None Reported Past Surgical History: Joint Replacement, Orthopedic Surgery Additional Past Surgical History / Comment(s): right knee X2 partial replacement Past Anesthesia/Blood Transfusion Reactions: No Reported Reaction Past Psychological History: No Psychological Hx Reported Smoking Status: Never smoker Past Alcohol Use History: None Reported Past Drug Use History: None Reported - Past Family History Father Family Medical History: CVA/TIA Additional Family Medical History / Comment(s): triple bypass surgery Mother Family Medical History: CVA/TIA, Myocardial Infarction (VT), Renal Disease Additional Family Medical History / Comment(s): hemodialysis General Exam - General Exam Comments Initial Comments: GENERAL: The patient is well nourished and well hydrated. VITAL SIGNS: Heart rate, blood pressure, respiratory rate reviewed as recorded in nurse's notes. EYES: Pupils are round and reactive. Extraocular movements are intact. No conjunctival / lid redness or swelling. ENT: No external evidence of injury, swelling, or ecchymosis. Airway is patent. Throat is clear. NECK: Nontender. No swelling or evidence of injury. No subcutaneous emphysema. Trachea is midline. No thyroid mass. HEART: Regular rate and rhythm. Good peripheral pulses. LUNGS/CHEST: Breath sounds clear and equal bilaterally. No rales, rhonchi, or wheezes. No ecchymosis, subcutaneous emphysema, or tenderness. ABDOMEN: Abdomen soft without tenderness. No palpable masses or organomegaly. No peritoneal signs. No abdominal wall swelling or ecchymosis. EXTREMITIES: There is moderate to significant tenderness noted directly over the proximal right Achilles tendon. Patient is unable to attempt dorsi flexion of the right leg to any degree. Bogginess is noted over the Achilles tendon. No other musculoskeletal injuries noted. Normal muscle tone and function. No thoracolumbar tenderness. NEUROLOGIC: Sensation is grossly intact. Cranial nerve exam reveals face is symmetrical, tongue is midline, speech is clear. SKIN: No abrasions or ecchymosis is noted. No induration or masses noted. PSYCHIATRIC: Alert and oriented. Appropriate behavior and judgment. Limitations: no limitations Course Vital Signs 08/26/20 16:09 Temperature 98.1 F Pulse Rate 57 L Respiratory 20 Rate Blood Pressure 127/67 O2 Sat by Pulse 98 Oximetry Medical Decision Making - Medical Decision Making The patient was seen and examined. Clinically, it is felt as though he likely does have a Achilles tendon rupture of the right leg. It is not felt as any x- rays are necessary as he is no tenderness over the bone regions. Case was discussed with the orthopedic physician assistance through nurse while he was in the OR and they recommend following up in the office in obtaining a splint and be nonweightbearing. Patient is agreeable with this plan. He received 2 Deerton in the ER. He does understand that he is to be nonweightbearing and to utilize the crutches. Crutches are dispensed. Splint is placed by myself. This is a 4 inch orthoglass splint is placed posteriorly. No complications encoutered. Good neurovascular status is identified. Close follow up is recommended. It is felt as though the patient had a vasovagal syncope episode. ECG shows a NSR at [address]-T wave changes. TX interval is 258, QRS duration is 114, and Qt internval is 377. Crutches are dispensed. Disposition Clinical Impression: Achilles tendon rupture, Vasovagal syncope Disposition: HOME SELF-CARE Condition: Good Prescriptions: HYDROcodone/APAP 5-325MG [Deerton 5] 1 - 2 each PO Q6HR PRN #15 tab PRN Reason: Pain Is patient prescribed a controlled substance at d/c from ED?: Yes When asked, does pt state using other controlled substances?: No If prescribed controlled substance>3 days was MAPS reviewed?: Prescribed <3 Days Referrals: Jose J Clifford MD [Primary Care Provider] - 1-2 days Rohith Mackey DO [Doctor of Osteopathic Medicine] - 1-2 days Time of Disposition: 17:50
[2020-08-26 18:05] VITALS: BP 127/75; PULSE 54; RESP 18
== END 2020-08-26 18:06 | disposition home or self-care (01) ==
LOC: EC 15:28
DX: S86.011A Strain of right Achilles tendon, initial encounter (principal); R55 Syncope and collapse; E11.9 Type 2 diabetes mellitus without complications; E78.5 Hyperlipidemia, unspecified; I25.2 Old myocardial infarction; Z79.1 Long term (current) use of non-steroidal anti-inflammatories (NSAID); Z79.82 Long term (current) use of aspirin; X50.0XXA Overexertion from strenuous movement or load, initial encounter
CPT/HCPCS: 29515; 93005; 99284

== ENCOUNTER → 2020-08-27 | Outpatient (CLI) | payer BC ==
[2020-08-27 23:18] LABS: HCT 45.6 % (39.6-50.0); HGB 14.6 g/dL (13.0-17.0); MCH 29.8 pg (27.0-32.0); MCV 93.1 fL (80.0-97.0); Mean Platelet Volume 12.3 fL (9.5-12.2); Platelet Count 261 X 10*3/uL (140-440); RDW 13.2 % (11.5-14.5); WBC 14.26 X 10*3/uL (4.50-10.00)
[2020-08-28 00:47] LABS: Anion Gap 8.5 mmol/L (4.00-12.00); Carbon Dioxide 27.5 mmol/L (21.6-31.8); Potassium 4.7 mmol/L (3.5-5.5)
[2020-08-28 00:49] LABS: Basophils # (M) 0 X 10*3/uL (0.00-0.10); Eosinophils # (M) 0.14 X 10*3/uL (0.04-0.35); Lymphocytes # (M) 9.13 X 10*3/uL (0.90-5.00); Neutrophils # (M) 3.99 X 10*3/uL (2.00-8.90); Neutrophils % (M) 28 %; Smudge Cells PRESENT
== END | disposition home or self-care (01) ==
LOC: LABWHC1 14:21
PROVIDERS: ATTEND Orthopaedic Surgery
DX: Z01.812 Encounter for preprocedural laboratory examination (principal); S86.091D Other specified injury of right Achilles tendon, subsequent encounter; X58.XXXD Exposure to other specified factors, subsequent encounter
CPT/HCPCS: 36415; 80051; 85025

== ENCOUNTER 2020-08-31 12:55 | Day surgery (SDC) | payer BC ==
[2020-08-30 11:25] VITALS: BMI 33.0
--- NOTE | 2020-08-30 13:57 | HP ---
HISTORY AND PHYSICAL CHIEF COMPLAINT: Right ankle pain. HISTORY OF PRESENT ILLNESS: Patient is a 60-year-old retired gentleman who presents with right posterior ankle pain after an injury on 08/26/2020. He was moving a car in his driveway when he felt a pop in the back of his leg. He is having a hard time walking ever since. He denies previous injury. PAST MEDICAL HISTORY: Significant for type 2 diabetes, reflux disease, hypercholesterolemia, and hypertension. PAST SURGICAL HISTORY: Significant for right knee surgery. CURRENT MEDICATIONS: Aspirin, atorvastatin, lisinopril, metformin, metoprolol, omeprazole, and spironolactone. ALLERGIES: He denies drug allergies. FAMILY HISTORY: Significant for heart disease and stroke. SOCIAL HISTORY: Negative for current tobacco or alcohol use. REVIEW OF SYSTEMS: Sixteen-point review of systems otherwise reviewed and is noncontributory. PHYSICAL EXAMINATION: On examination, the patient is approximately 6 foot 1, 250 pounds of endomorphic habitus. HEENT exam is nonfocal. Neck is supple. He has painless passive motion of the right hip and knee. On examination of his right ankle, he is tender over the posterior aspect over the distal Achilles with a palpable soft tissue gap. Manuel's test does not elicit plantar flexion. He is nontender about the medial and lateral ankle. No mid or forefoot tenderness is noted. Plantar flexion strength is 3/5. IMPRESSION: 1. Acute right Achilles tendon rupture. 2. Non-insulin dependent diabetes. 3. Increased body mass index. RECOMMENDATIONS: I talked to the patient and his at length regarding his condition along with treatment options. At this point, he opts to proceed with surgery. Risks and benefits were discussed at length in layman's terms. We will potentially perform that as an outpatient procedure. MMODL / IJN: [id number] /
[~2020-08-31 12:55] MED LIST: DEXAMETHASONE SOD PHOSPHATE 4 MG/ML 1 ML VIAL IV ONE; LACTATED RINGERS 1,000 ML IV SCH; MIDAZOLAM 2 MG/2 ML VIAL IV PRN
[2020-08-31 13:26] VITALS: RESP 16
[2020-08-31] MEDS ORDERED: ONDANSETRON 4 MG/2 ML VIAL ONE (13:28)
[2020-08-31 13:30] LABS: Glucose,Whole Blood 100 mg/dL (75-99)
[2020-08-31] MEDS ORDERED: DEXAMETHASONE SOD PHOSPHATE 4 MG/ML 1 ML VIAL IVP ONE (13:35)
[2020-08-31] MEDS ORDERED: ONDANSETRON 4 MG/2 ML VIAL IVP ONE (13:45)
[2020-08-31] MEDS ORDERED: fentaNYL (PF) 50 MCG/ML 2 ML AMP IVP ONE (13:48)
[2020-08-31] MEDS ORDERED: MIDAZOLAM 2 MG/2 ML VIAL IVP ONE (13:49)
[2020-08-31] MEDS ORDERED: PROPOFOL 10 MG/ML 20 ML VIAL IV ONE (14:42)
[2020-08-31] MEDS ORDERED: SODIUM CHLORIDE 0.9% (PF) 10 ML VIAL ONE (14:42)
[2020-08-31] MEDS ORDERED: LIDOCAINE 1% INJ 10MG/ML (20 ML MDV) ONE (14:42)
[2020-08-31] MEDS ORDERED: MIDAZOLAM 2 MG/2 ML VIAL ONE (14:42)
[2020-08-31] MEDS ORDERED: GLYCOPYRROLATE 0.2 MG/ML 2 ML VIAL ONE (14:42)
[2020-08-31] MEDS ORDERED: ePHEDrine SULFATE/0.9% NACL/PF 50 MG/5 ML SYRINGE IV ONE (14:42)
[2020-08-31] MEDS ORDERED: fentaNYL (PF) 50 MCG/ML 2 ML AMP ONE (14:42)
[2020-08-31] MEDS ORDERED: SUCCINYLCHOLINE CHLORIDE 100 MG/5 ML SYR IV ONE (14:42)
[2020-08-31] MEDS ORDERED: ceFAZolin 1,000 MG in SODIUM CHLORIDE 0.9% 1,000 ML IRRIGATION ONE (15:09)
--- NOTE | 2020-08-31 15:13 | P.ANPRN ---
Procedure Note - Anesthesia - Nerve Block Performed Right Popliteal Single Time Out Performed: Yes (1346) Date of Procedure: 08/31/20 Procedure Start Time: 13:48 Procedure Stop Time: 13:52 Indication: Requested by Surgeon (tl') Specifically requested for management of pain by DrAlo: Maulik Piper Sedation Type: Sedate with meaningful contact maintained Preparation: Sterile Prep Position: Left Lateral Catheter: None Needle Types: Pajunk Needle Gauge: 21 Ultrasound used to visualize needle placement: Yes Ultrasound used to observe medication spread: Yes Injectate: 0.5% Ropivacaine (see comment for volume) (15cc + 15cc PF NACL) Blood Aspirated: No Pain Paresthesia on Injection Noted: No Resistance on Injection: Normal Image Stored and Saved: Yes Events: Uneventful and Well Tolerated Right Adductor Canal Single Time Out Performed: Yes (1346) Date of Procedure: 08/31/20 Procedure Start Time: 13:53 Procedure Stop Time: 13:57 Location of Patient: PreOp Indication: Acute Post-Operative Pain, Requested by Surgeon Specifically requested for management of pain by DrAlo: Maulik Piper Position: Supine Catheter: None Needle Types: Pajunk Needle Gauge: 21 Ultrasound used to visualize needle placement: Yes Ultrasound used to observe medication spread: Yes Injectate: 0.5% Ropivacaine (see comment for volume) (15cc + 15cc NACL PF) Blood Aspirated: No Pain Paresthesia on Injection Noted: No Resistance on Injection: Normal Image Stored and Saved: Yes Events: Uneventful and Well Tolerated
[2020-08-31] MEDS ORDERED: LACTATED RINGERS 1,000 ML IV ONE ×2 (15:31)
--- NOTE | 2020-08-31 16:06 | P.OP ---
Date of Procedure: 08/31/20 Preoperative Diagnosis: Acute right Achilles tendon rupture Postoperative Diagnosis: Same Procedure(s) Performed: Open right Achilles tendon repair Anesthesia: la ARRIAZA Surgeon: Maulik Piper Seafood Packer #1: Wale Henson Assistant #2: Bharat Benites Pathology: none sent Condition: stable Disposition: PACU Indications for Procedure: The patient's a 60-year-old male presents after an acute injury to his right Achilles. A discussion of the risks and benefits of operative intervention versus conservative treatment was made with patient. He opted to proceed with surgery. Operative risks to include infection, neurovascular injury, wound complications, tendon rerupture, possible need for subsequent procedures was discussed. Informed consent was obtained. Operative Findings: as below Description of Procedure: Patient was brought to the operating room, and after induction of general anesthesia was placed prone. The right lower extremity was prepped and draped in normal fashion. The tourniquet was inflated to 270 mmHg. A 12 cm incision was then made just medial to the right Achilles tendon. Skin was incised sharply. Subcutaneous tissues were divided sharply. Electrocautery was used for hemostasis. The tendon sheath was opened. The tendon rupture was then evaluated. This involved the proximal one third of the tendon itself. The ends were mobilized. 2 sutures utilizing #5 Ethibond was placed in the Bennell type fashion proximally and distally. These were then tied and the tendon ends were reapposed with the ankle in plantarflexion. The edges were oversewn with 0 Timothy ryl suture. The peritenon was closed with interrupted 2-0 Vicryl sutures. The subcutaneous tissues reapproximated interrupted 2-0 Vicryl sutures. The subcutaneous tissues were approximated with 3-0 subcuticular Prolene suture. Steri-Strips were applied. A sterile dressing was applied. The tourniquet was deflated with less than 1 hour total tourniquet time. A bulky splint was placed with the ankle in plantarflexion. He was then awoken from general anesthesia and transferred to recovery room in good condition. Blood loss was estimated at 10 mL. No complications were incurred. Sponge and needle counts were correct at the end the case. Randall AHN and Bharat AHN assisted during the major components of the case to include positioning, exposure, tendon repair, and closure.
[2020-08-31 16:16] VITALS: TEMP 97.8
[2020-08-31 16:22] LABS: Glucose,Whole Blood 112 mg/dL (75-99)
[2020-08-31] MEDS: HYDROmorphone 0.5 MG/0.5 ML SYRINGE IVP PRN ×2 (16:26→16:33)
[2020-08-31 17:34] VITALS: BP 136/77; PULSE 59
== END 2020-08-31 17:41 | disposition home or self-care (01) ==
LOC: OR 12:55
PROVIDERS: ATTEND Orthopaedic Surgery
DX: S86.011A Strain of right Achilles tendon, initial encounter (principal); X58.XXXA Exposure to other specified factors, initial encounter; K21.9 Gastro-esophageal reflux disease without esophagitis; E78.00 Pure hypercholesterolemia, unspecified; E11.9 Type 2 diabetes mellitus without complications; I10 Essential (primary) hypertension; Z79.84 Long term (current) use of oral hypoglycemic drugs; Z79.82 Long term (current) use of aspirin; Z79.899 Other long term (current) drug therapy; Z82.3 Family history of stroke; Z82.49 Family history of ischemic heart disease and other diseases of the circulatory system; I25.2 Old myocardial infarction; E78.5 Hyperlipidemia, unspecified; J44.9 Chronic obstructive pulmonary disease, unspecified; Z79.01 Long term (current) use of anticoagulants
CPT/HCPCS: 27650; J2250; J1100; J0690 ×2; J2405; J2001; J3010; J0330; J2704; J1170

== ENCOUNTER 2021-01-09 09:28 | Observation (INO) | payer BC ==
[2021-01-09] MEDS ORDERED: SODIUM CHLORIDE 0.9% 1,000 ML IV STA (10:16)
--- NOTE | 2021-01-09 10:20 | ED ---
General Adult HPI - General Chief complaint: Syncope Stated complaint: syncope Time Seen by Provider: 01/09/21 10:01 Source: patient, EMS, RN notes reviewed Mode of arrival: EMS Limitations: no limitations - History of Present Illness Initial comments: 60-year-old male with a past medical history of diabetes mellitus, COPD, hyperlipidemia, hypertension, [place] with 1 stent presents to the emergency room for a chief complaint of syncope. Patient states he got up this morning and drink some orange juice and took his meds as per usual. States about 10-15 minutes later he was sitting down at his computer when he started to get lightheaded. This lasted for several seconds and then he passed out. Patient states when he woke up he was shaky and sweaty. He states that since then his symptoms have resolved. He denies any associated chest pain or shortness of breath.Patient has no other complaints at this time including shortness of breath, chest pain, abdominal pain, nausea or vomiting, headache, or visual changes. - Related Data Home Medications Medication Instructions Recorded Confirmed Multivitamins, Thera [Multivitamin 1 tab PO DAILY 05/03/18 01/09/21 (formulary)] Omeprazole 20 mg PO DAILY 05/03/18 01/09/21 metFORMIN HCL [Glucophage] 500 mg PO BID 08/30/20 01/09/21 Albuterol Sulfate [Ventolin HFA] 2 puff INHALATION RT-Q6H PRN 01/09/21 01/09/21 Aspirin EC [Ecotrin Low Dose] 81 mg PO DAILY 01/09/21 01/09/21 Previous Rx's Medication Instructions Recorded Atorvastatin [Lipitor] 80 mg PO HS #90 tab 05/05/18 Metoprolol Tartrate [Lopressor] 25 mg PO BID #60 tab 05/06/18 Nitroglycerin Sl Tabs [Nitrostat] 0.4 mg SUBLINGUAL Q5M PRN #25 tab 05/06/18 Spironolactone [Aldactone] 25 mg PO DAILY #30 tab 05/06/18 lisinopriL [Zestril] 5 mg PO BID #60 tab 05/06/18 Allergies Allergy/AdvReac Type Severity Reaction Status Date / Time No Known Allergies Allergy Verified 01/09/21 11:43 Review of Systems ROS Statement: Those systems with pertinent positive or pertinent negative responses have been documented in the HPI. ROS Other: All systems not noted in ROS Statement are negative. Past Medical History Past Medical History: COPD, Diabetes Mellitus, GERD/Reflux, Hyperlipidemia, Hypertension, Myocardial Infarction ([place]), Musculoskeletal Disorder, Osteoarthritis (OA) Additional Past Medical History / Comment(s): right achilles tendon rupture on Last Myocardial Infarction Date:: 2018 History of Any Multi-Drug Resistant Organisms: None Reported Past Surgical History: Heart Catheterization With Stent, Joint Replacement, Orthopedic Surgery Additional Past Surgical History / Comment(s): right knee X2 partial replacement Past Anesthesia/Blood Transfusion Reactions: No Reported Reaction Date of Last Stent Placement:: 2018 Past Psychological History: No Psychological Hx Reported Smoking Status: Never smoker - Past Family History Father Family Medical History: CVA/TIA Additional Family Medical History / Comment(s): triple bypass surgery Mother Family Medical History: CVA/TIA, Myocardial Infarction ([place]), Renal Disease Additional Family Medical History / Comment(s): hemodialysis General Exam Limitations: no limitations General appearance: alert, in no apparent distress Head exam: Present: atraumatic Eye exam: Present: normal appearance, PERRL, EOMI. Absent: scleral icterus, conjunctival injection ENT exam: Present: normal exam, mucous membranes moist Neck exam: Present: normal inspection, full ROM. Absent: tenderness Respiratory exam: Present: normal lung sounds bilaterally. Absent: respiratory distress, wheezes Cardiovascular Exam: Present: regular rate, normal rhythm, normal heart sounds GI/Abdominal exam: Present: soft, normal bowel sounds. Absent: distended, tenderness Course Vital Signs 01/09/21 01/09/21 01/09/21 09:39 09:49 10:31 Temperature 98.1 F Pulse Rate 57 L Pulse Rate [ 53 L Cut Off Man ] Respiratory 18 Rate Blood Pressure 137/72 O2 Sat by Pulse Oximetry 01/09/21 11:03 Temperature Pulse Rate 50 L Pulse Rate [ Cut Off Man ] Respiratory 18 Rate Blood Pressure 101/66 O2 Sat by Pulse 96 Oximetry EKG Findings - EKG Comments: EKG Findings:: Sinus bradycardia, ventricular rate 52, OR interval 264, QTc 394 Medical Decision Making - Medical Decision Making vitals are stable. Heart rate in the low 50s, did drop to the 49 at one point. EKG nonischemic. CBC CMP unremarkable. Troponin negative. Chest x-ray shows no acute cardiopulmonary process. At this time patient will be admitted for cardiology consultation. - Lab Data Result diagrams: 01/09/21 11:03 01/09/21 11:03 Lab Results 01/09/21 01/09/21 01/09/21 Range/Units 11:03 11:03 11:03 WBC 14.3 H (3.8-10.6) k/uL RBC 5.31 (4.30-5.90) m/uL Hgb 15.9 (13.0-17.5) gm/dL Hct 48.9 (39.0-53.0) % MCV 92.0 (80.0-100.0) fL MCH 29.8 (25.0-35.0) pg MCHC 32.4 (31.0-37.0) g/dL RDW 12.6 (11.5-15.5) % Plt Count 244 (150-450) k/uL MPV 9.4 Neutrophils % 64 % Lymphocytes % 27 % Monocytes % 6 % Eosinophils % 1 % Basophils % 1 % Neutrophils # 9.2 H (1.3-7.7) k/uL Lymphocytes # 3.9 (1.0-4.8) k/uL Monocytes # 0.8 (0-1.0) k/uL Eosinophils # 0.1 (0-0.7) k/uL Basophils # 0.1 (0-0.2) k/uL PT 10.3 (9.0-12.0) sec INR 1.0 (<1.2) APTT 22.9 (22.0-30.0) sec Sodium 138 (137-145) mmol/L Potassium 4.7 (3.5-5.1) mmol/L Chloride 103 (98-107) mmol/L Carbon Dioxide 26 (22-30) mmol/L Anion Gap 9 mmol/L BUN 15 (9-20) mg/dL Creatinine 0.99 (0.66-1.25) mg/dL Est GFR (CKD-EPI)AfAm >90 (>60 ml/min/1.73 sqM) Est GFR (CKD-EPI)NonAf 82 (>60 ml/min/1.73 sqM) Glucose 131 H (74-99) mg/dL Calcium 9.7 (8.4-10.2) mg/dL Magnesium 2.2 (1.6-2.3) mg/dL Total Bilirubin 0.7 (0.2-1.3) mg/dL AST 32 (17-59) U/L ALT 33 (4-49) U/L Alkaline Phosphatase 108 (38-126) U/L Troponin I (0.000-0.034) ng/mL Total Protein 6.9 (6.3-8.2) g/dL Albumin 4.4 (3.5-5.0) g/dL 01/09/21 Range/Units 11:03 WBC (3.8-10.6) k/uL RBC (4.30-5.90) m/uL Hgb (13.0-17.5) gm/dL Hct (39.0-53.0) % MCV (80.0-100.0) fL MCH (25.0-35.0) pg MCHC (31.0-37.0) g/dL RDW (11.5-15.5) % Plt Count (150-450) k/uL MPV Neutrophils % % Lymphocytes % % Monocytes % % Eosinophils % % Basophils % % Neutrophils # (1.3-7.7) k/uL Lymphocytes # (1.0-4.8) k/uL Monocytes # (0-1.0) k/uL Eosinophils # (0-0.7) k/uL Basophils # (0-0.2) k/uL PT (9.0-12.0) sec INR (<1.2) APTT (22.0-30.0) sec Sodium (137-145) mmol/L Potassium (3.5-5.1) mmol/L Chloride (98-107) mmol/L Carbon Dioxide (22-30) mmol/L Anion Gap mmol/L BUN (9-20) mg/dL Creatinine (0.66-1.25) mg/dL Est GFR (CKD-EPI)AfAm (>60 ml/min/1.73 sqM) Est GFR (CKD-EPI)NonAf (>60 ml/min/1.73 sqM) Glucose (74-99) mg/dL Calcium (8.4-10.2) mg/dL Magnesium (1.6-2.3) mg/dL Total Bilirubin (0.2-1.3) mg/dL AST (17-59) U/L ALT (4-49) U/L Alkaline Phosphatase (38-126) U/L Troponin I <0.012 (0.000-0.034) ng/mL Total Protein (6.3-8.2) g/dL Albumin (3.5-5.0) g/dL Disposition Clinical Impression: Syncope, Bradycardia Disposition: ADMITTED IP TO THIS HOSP Is patient prescribed a controlled substance at d/c from ED?: No Referrals: Jose J Clifford MD [Primary Care Provider] - 1-2 days Time of Disposition: 12:04
--- NOTE | 2021-01-09 10:49 | XR ---
EXAMINATION TYPE: XR chest 2V DATE OF EXAM: 01/09/2021 COMPARISON: 05/03/2018 HISTORY: Syncope TECHNIQUE: Frontal and lateral views of the chest are obtained. FINDINGS: There is no focal air space opacity, pleural effusion, or pneumothorax seen. The cardiac silhouette size is within normal limits. The osseous structures are intact. IMPRESSION: No acute cardiopulmonary process.
[2021-01-09 11:24] LABS: Basophils # (A) 0.1 k/uL (0-0.2); Basophils % (A) 1 %; Eosinophils # (A) 0.1 k/uL (0-0.7); Eosinophils % (A) 1 %; HCT 48.9 % (39.0-53.0); HGB 15.9 gm/dL (13.0-17.5); Lymphocytes # (A) 3.9 k/uL (1.0-4.8); Lymphocytes % (A) 27 %; MCH 29.8 pg (25.0-35.0); MCHC 32.4 g/dL (31.0-37.0); Mean Platelet Volume 9.4; Monocytes # (A) 0.8 k/uL (0-1.0); Monocytes % (A) 6 %; Neutrophils # (A) 9.2 k/uL (1.3-7.7); Neutrophils % (A) 64 %; Platelet Count 244 k/uL (150-450); RBC 5.31 m/uL (4.30-5.90); RDW 12.6 % (11.5-15.5); WBC 14.3 k/uL (3.8-10.6)
[2021-01-09 11:25] LABS: ALT 33 U/L (4-49); AST 32 U/L (17-59); African American GFR (CKD) >90 (>60 ml/min/1.73 sqM); Albumin 4.4 g/dL (3.5-5.0); Alkaline Phosphatase 108 U/L (38-126); Anion Gap 9 mmol/L; Blood Urea Nitrogen 15 mg/dL (9-20); Calcium 9.7 mg/dL (8.4-10.2); Carbon Dioxide 26 mmol/L (22-30); Chloride 103 mmol/L (98-107); Glucose 131 mg/dL (74-99); Magnesium 2.2 mg/dL (1.6-2.3); Non-African American GFR(CKD) 82 (>60 ml/min/1.73 sqM); Potassium 4.7 mmol/L (3.5-5.1); Sodium 138 mmol/L (137-145); Total Bilirubin 0.7 mg/dL (0.2-1.3); Total Protein 6.9 g/dL (6.3-8.2)
[2021-01-09 11:26] LABS: Partial Thromboplastin Time 22.9 sec (22.0-30.0); Prothrombin Time 10.3 sec (9.0-12.0)
[2021-01-09] MEDS ORDERED: ALBUTEROL NEBULIZED 2.5 MG/3 ML INHALATION PRN (12:20)
[2021-01-09] MEDS ORDERED: lisinopriL 5 MG TAB PO SCH (21:00)
[2021-01-09] MEDS: ATORVASTATIN 80 MG TAB PO SCH (21:35)
[2021-01-09] MEDS: metFORMIN 500 MG TAB PO SCH (21:35)
--- NOTE | 2021-01-09 22:24 | P.HPIM ---
History of Present Illness H&P Date: 01/09/21 Chief Complaint: Syncope Mr. Santos is a 60-year-old male with a past medical history of COPD, hypertension, diabetes mellitus, GERD, hyperlipidemia, coronary artery disease status post stenting coming to the hospital with a chief complaint of syncopal episode. Patient states that he has history of having syncopal episodes because of severe pain. He mentions that he was sitting up and relaxing in a recliner this morning after having his breakfast when he started to have the syncopal episode and he lost his consciousness after feeling lightheaded. This episode lasted for few seconds and he felt that he passed out. Later on he was awake and he was shaky and sweaty after this episode. Patient denied having any chest pain or difficulty breathing associated with this episode. He denied having any nausea vomiting abdominal pain or diarrhea with this. Patient denied having any history of recent infections. He denies having any his hematuria or dysuria. Patient denied having any fevers chills or rigors. At the time of admission his vitals temperature 98.1, heart rate 57, respiratory rate 18, saturating at 95% on room air. He had labs drawn showing white count of 14.3, hemoglobin 15.9, platelets 244. Sodium 138, potassium 4.7, chloride 103, bicarb 26, BUN 15, creatinine 0.99 troponin less than 0.012 coronavirus PCR negative. Patient had a chest x-ray showing no acute cardiopulmonary process and an EKG showing sinus bradycardia with first-degree AV block. Review of Systems REVIEW OF SYSTEMS: CONSTITUTIONAL: No fever, chills or rigors HEENT: No recent visual problems or hearing problems. Denied any sore throat. CARDIOVASCULAR: No chest pain, orthopnea, PND, no palpitations, no syncope. PULMONARY: No cough or SOB GASTROINTESTINAL: No diarrhea, no nausea, no vomiting, no abdominal pain. NEUROLOGICAL: No headaches, no weakness, no numbness. HEMATOLOGICAL: Denies any bleeding or petechiae. GENITOURINARY: Denies any burning micturition, frequency, or urgency. MUSCULOSKELETAL/RHEUMATOLOGICAL: none ENDOCRINE: Denies any polyuria or polydipsia. The rest of the 14-point review of systems is negative. Past Medical History Past Medical History: COPD, Diabetes Mellitus, GERD/Reflux, Hyperlipidemia, Hypertension, Myocardial Infarction (ID), Musculoskeletal Disorder, Osteoarthritis (OA) Additional Past Medical History / Comment(s): right achilles tendon rupture on Last Myocardial Infarction Date:: 2018 History of Any Multi-Drug Resistant Organisms: None Reported Past Surgical History: Heart Catheterization With Stent, Joint Replacement, Orthopedic Surgery Additional Past Surgical History / Comment(s): right knee X2 partial replacement Past Anesthesia/Blood Transfusion Reactions: No Reported Reaction Date of Last Stent Placement:: 2018 Past Psychological History: No Psychological Hx Reported Smoking Status: Never smoker - Past Family History Father Family Medical History: CVA/TIA Additional Family Medical History / Comment(s): triple bypass surgery Mother Family Medical History: CVA/TIA, Myocardial Infarction (ID), Renal Disease Additional Family Medical History / Comment(s): hemodialysis Medications and Allergies Home Medications Medication Instructions Recorded Confirmed Type Multivitamins, Thera [Multivitamin 1 tab PO DAILY 05/03/18 01/09/21 History (formulary)] Omeprazole 20 mg PO DAILY 05/03/18 01/09/21 History Atorvastatin [Lipitor] 80 mg PO HS #90 tab 05/05/18 01/09/21 Rx Metoprolol Tartrate [Lopressor] 25 mg PO BID #60 tab 05/06/18 01/09/21 Rx Nitroglycerin Sl Tabs [Nitrostat] 0.4 mg SUBLINGUAL Q5M PRN #25 tab 05/06/18 01/09/21 Rx Spironolactone [Aldactone] 25 mg PO DAILY #30 tab 05/06/18 01/09/21 Rx metFORMIN HCL [Glucophage] 500 mg PO BID 08/30/20 01/09/21 History Albuterol Sulfate [Ventolin HFA] 2 puff INHALATION RT-Q6H PRN 01/09/21 01/09/21 History Aspirin EC [Ecotrin Low Dose] 81 mg PO DAILY 01/09/21 01/09/21 History lisinopriL [Zestril] 5 mg PO DAILY tab 01/10/21 Rx Allergies Allergy/AdvReac Type Severity Reaction Status Date / Time No Known Allergies Allergy Verified 01/09/21 11:43 Physical Exam Vitals: Vital Signs Temp Pulse Pulse Resp BP Pulse Ox 01/09/21 13:48 56 L 20 126/68 97 01/09/21 11:03 50 L 18 101/66 96 01/09/21 10:31 137/72 11/07/21 09:49 53 L 01/09/21 09:39 98.1 F 57 L 18 Intake and Output 01/09/21 01/09/21 01/09/21 06:59 14:59 22:59 Other: Weight 112.491 kg PHYSICAL EXAMINATION: GENERAL: The patient is alert and oriented x3, not in any acute distress. HEENT: Pupils are round and equally reacting to light. EOMI. No scleral icterus. No conjunctival pallor. Normocephalic, atraumatic. No pharyngeal erythema. No thyromegaly. CARDIOVASCULAR: S1 and S2 present. No murmurs, rubs, or gallops. PULMONARY: Bilateral Breath sounds positive. No wheezes or crackles. ABDOMEN: Soft, nontender, nondistended, normoactive bowel sounds. No palpable organomegaly. MUSCULOSKELETAL: No joint swelling or deformity. EXTREMITIES: No cyanosis, clubbing, or pedal edema. NEUROLOGICAL: No focal neurological deficits. Strength 5 out of 5 in all 4 extremities. Cranial nerves 2-12 grossly intact. SKIN: No rashes. Results CBC & Chem 7: 01/10/21 06:50 01/10/21 06:50 Labs: Abnormal Lab Results - Last 24 Hours (Table) 01/09/21 01/09/21 Range/Units 11:03 11:03 WBC 14.3 H (3.8-10.6) k/uL Neutrophils # 9.2 H (1.3-7.7) k/uL Glucose 131 H (74-99) mg/dL Assessment and Plan Assessment: ASSESSMENT Syncopal episode Bradycardia with first-degree heart block History of coronary artery disease status post stenting Hypertension Diabetes mellitus Hyperlipidemia History of multiple joint osteoarthritis PLAN: Patient had an EKG showing bradycardia with first-degree heart block heart rate around low 50s. Serial troponins and EKGs to be drawn. Will order an echocardiogram. Cardiology has been consulted. Patient has been restarted on his home medications. Further recommendations to follow depending on the progress of the patient.
[2021-01-10] MEDS: MULTIVITAMINS, THERA 1 EACH TAB PO SCH (08:17)
[2021-01-10] MEDS: lisinopriL 5 MG TAB PO SCH (08:17)
[2021-01-10] MEDS: PANTOPRAZOLE 40 MG TABLET PO SCH (08:17)
[2021-01-10] MEDS: SPIRONOLACTONE 25 MG TAB PO SCH (08:18)
[2021-01-10] MEDS: ASPIRIN 81 MG PO SCH (08:18)
--- NOTE | 2021-01-10 09:34 | P.CRDCN ---
History of Present Illness History of present illness: HISTORY OF PRESENTING ILLNESS This is a pleasant 60-year-old male past medical history significant for coronary artery disease status post PCI to proximal LAD in 05/2018 (in setting of NSTEMI), hypertension, hyperlipidemia, type 2 diabetes, recent diagnosis of COPD, vasovagal syncope with pain, sinus bradycardia. He follows in the office with Dr. Auguste at [facility]. We have been asked to see in consultation for syncope and bradycardia. Patient presents emergency department with a syncopal episode at home. Yesterday he states he woke up and was doing his normal daily activities, he sat down in front of his computer and within about 15 minutes he felt as if he may pass out and he did lose consciousness. Unknown down time he states that his was in the shower. At the time his was out of the shower he was awake his noted him to be diaphoretic and pale, and dilated pupils. He states he did feel "drowsy". He denies any chest pain, palpitations, shortness of breath, lightheadedness, dizziness. 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 He states he has a history of passing out with intense pain. He denies an having any pain yesterday. He also endorses a known history of sinus bradycardia. He states his symptoms are different than when he had his N STEMI in 2019. He denies any recent stress test with his tinter photograph. He denies any tobacco use, alcohol use. He was recently diagnosed with COPD. His does endorse noticing sleep apnea sometimes at night. He denies any symptoms or orthopnea or PND. DIAGNOSTICS EKG reveals sinus bradycardia, heart rate 52, first-degree AV block, nonspecific ST ST-T wave abnormalities. Prior EKG was similar findings. Last Cardiac Catheterization 05/22/2018 revealed 95% stenosis in the proximal LAD, circumflex and RCA free of any significant disease. Patient underwent PCI proximal LAD by Dr. Garcia. Telemetry tracings indicate sinus bradycardia, heart rate 43-50s Chest xray no acute cardiopulmonary process Laboratory reviewed, troponin negative 3, WBC 14.3, hemoglobin 15, platelets 244, sodium 138, potassium 4.7, BUN 15, serum creatinine 0.9, magnesium 2.2, COVID-19 B seronegative Current home medications include spironolactone 25 mg daily, when necessary nitroglycerin, Lopressor 25 mg twice a day, metformin, lisinopril 5 mg twice a day, atorvastatin 80 mg nightly, [id number] daily Most recent echocardiogram 2019 revealed EF of 5560%, no significant wall motion abnormalities REVIEW OF SYSTEMS At the time of my exam: CONSTITUTIONAL: Denies fever or chills. +syncope CARDIOVASCULAR: Denies chest pain, shortness of breath, orthopnea, PND or palpitations. RESPIRATORY: Denies cough. GASTROINTESTINAL: Denies abdominal pain, diarrhea, constipation, nausea or vomiting. MUSCULOSKELETAL: Denies myalgias. NEUROLOGIC: Denies numbness, tingling, headache or weakness. ENDOCRINE: Denies fatigue, weight change, polydipsia or polyurina. GENITOURINARY: Denies burning, hematuria or urgency with micturation. HEMATOLOGIC: Denies history of anemia or bleeding. PHYSICAL EXAMINATION Blood pressure 128/76, heart rate 59, afebrile maintaining oxygen saturations on room air CONSTITUTIONAL: No apparent distress. HEENT: Head is normocephalic. Pupils are equal, round. Sclerae anicteric. Mucous membranes of the mouth are moist. No JVD. No carotid bruit. CHEST EXAMINATION: Lungs are clear to auscultation. No chest wall tenderness is noted on palpation or with deep breathing. HEART EXAMINATION: Regular rate and rhythm. S1, S2 heard. No murmurs, gallops or rub. ABDOMEN: Soft, nontender. Positive bowel sounds. EXTREMITIES: 2+ peripheral pulses, no lower extremity edema and no calf tenderness. SKIN: warm, dry NEUROLOGIC EXAMINATION: Patient is awake, alert and oriented x3. ASSESSMENT Syncope Sinus bradycardia Coronary artery disease status post PCI to proximal LAD in 05/2018 (in setting of NSTEMI) History of Hypertension- hypotensive inpatient Hyperlipidemia Type 2 diabetes COPD History of vasovagal syncope with pain PLAN Telemetry reviewed, patient sinus bradycardia HR mostly in the 50s no significant pauses noted An acute coronary event has been ruled out with no EKG evidence of ischemia and negative cardiac enzymes. Obtain 2D echocardiogram and doppler study to assess cardiac structure and function. Perform stress echo test to assess for stress induced cardiac ischemia. If abnormal will consider coronary angiography. Decrease lisinopril to 5mg daily Hold beta anthony If stress test is negative and echocardiogram with no acute findings ok to discharge from cardiology perspective Close follow up with patient's primary tinter photograph Dr. Auguste Thank you kindly for this consultation. Nurse Practitioner note has been reviewed, I agree with a documented findings and plan of care. Patient was seen and examined. Past Medical History Past Medical History: COPD, Diabetes Mellitus, GERD/Reflux, Hyperlipidemia, Hypertension, Myocardial Infarction (NM), Musculoskeletal Disorder, Osteoarthritis (OA) Additional Past Medical History / Comment(s): right achilles tendon rupture on Last Myocardial Infarction Date:: 2018 History of Any Multi-Drug Resistant Organisms: None Reported Past Surgical History: Heart Catheterization With Stent, Joint Replacement, Orthopedic Surgery Additional Past Surgical History / Comment(s): right knee X2 partial replacement Past Anesthesia/Blood Transfusion Reactions: No Reported Reaction Date of Last Stent Placement:: 2018 Past Psychological History: No Psychological Hx Reported Smoking Status: Never smoker Past Alcohol Use History: None Reported Past Drug Use History: None Reported - Past Family History Father Family Medical History: CVA/TIA Additional Family Medical History / Comment(s): triple bypass surgery Mother Family Medical History: CVA/TIA, Myocardial Infarction (NM), Renal Disease Additional Family Medical History / Comment(s): hemodialysis Medications and Allergies Home Medications Medication Instructions Recorded Confirmed Type Multivitamins, Thera [Multivitamin 1 tab PO DAILY 05/03/18 01/09/21 History (formulary)] Omeprazole 20 mg PO DAILY 05/03/18 01/09/21 History Atorvastatin [Lipitor] 80 mg PO HS #90 tab 05/05/18 01/09/21 Rx Metoprolol Tartrate [Lopressor] 25 mg PO BID #60 tab 05/06/18 01/09/21 Rx Nitroglycerin Sl Tabs [Nitrostat] 0.4 mg SUBLINGUAL Q5M PRN #25 tab 05/06/18 01/09/21 Rx Spironolactone [Aldactone] 25 mg PO DAILY #30 tab 05/06/18 01/09/21 Rx lisinopriL [Zestril] 5 mg PO BID #60 tab 05/06/18 01/09/21 Rx metFORMIN HCL [Glucophage] 500 mg PO BID 08/30/20 01/09/21 History Albuterol Sulfate [Ventolin HFA] 2 puff INHALATION RT-Q6H PRN 01/09/21 01/09/21 History Aspirin EC [Ecotrin Low Dose] 81 mg PO DAILY 01/09/21 01/09/21 History Allergies Allergy/AdvReac Type Severity Reaction Status Date / Time No Known Allergies Allergy Verified 01/09/21 11:43 Physical Exam Vitals: Vital Signs Temp Pulse Pulse Resp BP BP Pulse Ox 01/10/21 01:21 97.8 F 50 L 18 108/67 96 01/09/21 19:50 98.1 F 54 L 17 128/66 95 01/09/21 19:30 98.0 F 55 L 20 119/68 98 01/09/21 18:00 97.8 F 56 L 18 118/70 01/09/21 17:00 54 L 01/09/21 14:00 98.0 F 52 L 20 121/66 01/09/21 13:48 56 L 20 126/68 97 01/09/21 12:00 55 L 27 H 111/64 01/09/21 11:03 50 L 18 101/66 96 01/09/21 11:00 43 L 16 115/75 01/09/21 10:31 137/72 01/09/21 10:00 54 L 17 144/79 95 01/09/21 09:49 53 L 01/09/21 09:45 56 L 20 01/09/21 09:39 98.1 F 57 L 18 Intake and Output 01/09/21 01/10/21 01/10/21 22:59 06:59 14:59 Other: # Voids 0 2 Weight 112.491 kg Results 01/09/21 11:03 01/09/21 11:03 Cardiac Enzymes 01/09/21 01/09/21 01/09/21 Range/Units 11:03 11:03 14:12 AST 32 (17-59) U/L Troponin I <0.012 <0.012 (0.000-0.034) ng/mL 01/09/21 Range/Units 18:19 AST (17-59) U/L Troponin I <0.012 (0.000-0.034) ng/mL Coagulation 01/09/21 Range/Units 11:03 PT 10.3 (9.0-12.0) sec APTT 22.9 (22.0-30.0) sec CBC 01/09/21 Range/Units 11:03 WBC 14.3 H (3.8-10.6) k/uL RBC 5.31 (4.30-5.90) m/uL Hgb 15.9 (13.0-17.5) gm/dL Hct 48.9 (39.0-53.0) % Plt Count 244 (150-450) k/uL Comprehensive Metabolic Panel 01/09/21 Range/Units 11:03 Sodium 138 (137-145) mmol/L Potassium 4.7 (3.5-5.1) mmol/L Chloride 103 (98-107) mmol/L Carbon Dioxide 26 (22-30) mmol/L BUN 15 (9-20) mg/dL Creatinine 0.99 (0.66-1.25) mg/dL Glucose 131 H (74-99) mg/dL Calcium 9.7 (8.4-10.2) mg/dL AST 32 (17-59) U/L ALT 33 (4-49) U/L Alkaline Phosphatase 108 (38-126) U/L Total Protein 6.9 (6.3-8.2) g/dL Albumin 4.4 (3.5-5.0) g/dL Current Medications Generic Name Dose Route Start Last Admin Trade Name Freq PRN Reason Stop Dose Admin Albuterol Sulfate 2.5 mg 01/09/21 12:20 Albuterol Nebulized 2.5 Mg/3 Ml INHALATION RT-Q6H PRN Shortness Of Breath Aspirin 81 mg 01/10/21 09:00 Aspirin 81 Mg PO DAILY JONAS Atorvastatin Calcium 80 mg 01/09/21 21:00 01/09/21 21:35 Atorvastatin 80 Mg Tab PO 80 mg HS JONAS Administration Lisinopril 5 mg 01/09/21 21:00 01/09/21 21:35 Lisinopril 5 Mg Tab PO 5 mg BID JONAS Administration Metformin HCl 500 mg 01/09/21 21:00 01/09/21 21:35 Metformin 500 Mg Tab PO 500 mg BID JONAS Administration Multivitamins 1 each 01/10/21 09:00 Multivitamins, Thera 1 Each Tab PO DAILY JONAS Pantoprazole Sodium 40 mg 01/10/21 07:30 Pantoprazole 40 Mg Tablet PO [id number]-[id number] JONAS Spironolactone 25 mg 01/10/21 09:00 Spironolactone 25 Mg Tab PO DAILY JONAS Intake and Output 01/09/21 01/10/21 01/10/21 22:59 06:59 14:59 Other: # Voids 0 2 Weight 112.491 kg 01/09/21 11:03 01/09/21 11:03
[2021-01-10 10:55] LABS: Basophils # (A) 0.04 X 10*3/uL (0.00-0.10); Basophils % (A) 0.3 %; Eosinophils # (A) 0.17 X 10*3/uL (0.04-0.35); Eosinophils % (A) 1.4 %; HCT 47.6 % (39.6-50.0); Lymphocytes # (A) 6.16 X 10*3/uL (0.90-5.00); Lymphocytes % (A) 51.5 %; MCH 29.2 pg (27.0-32.0); MCHC 31.5 g/dL (32.0-37.0); MCV 92.8 fL (80.0-97.0); Monocytes # (A) 0.99 X 10*3/uL (0.20-1.00); Monocytes % (A) 8.3 %; Neutrophils # (A) 4.56 X 10*3/uL (1.80-7.70); Neutrophils % (A) 38.2 %; Platelet Count 183 X 10*3/uL (140-440); RBC 5.13 X 10*6/uL (4.40-5.60); WBC 11.95 X 10*3/uL (4.50-10.00)
--- NOTE | 2021-01-10 11:00 | ECHOF ---
Referral Reason:cp MEASUREMENTS -------- HEIGHT: 180.3 cm WEIGHT: 112.5 kg BP: RVIDd: 2.7 cm (< 3.3) IVSd: 1.4 cm (0.6 - 1.1) LVIDd: 3.5 cm (3.9 - 5.3) LVPWd: 1.2 cm (0.6 - 1.1) IVSs: 1.9 cm LVIDs: 1.4 cm LVPWs: 1.7 cm LAESV Index (A-L): 19.58 ml/m Ao Diam: 3.9 cm (2.0 - 3.7) AV Cusp: 2.1 cm (1.5 - 2.6) LA Diam: 3.1 cm (2.7 - 3.8) MV EXCURSION: 22.213 mm (> 18.000) MV EF SLOPE: 137 mm/s (70 - 150) EPSS: 1.2 cm MV E Mannie: 1.05 m/s MV DecT: 230 ms MV A Mannie: 0.79 m/s MV E/A Ratio: 1.33 RAP: 5.00 mmHg RVSP: 10.09 mmHg FINDINGS -------- Sinus rhythm. This was a technically good study. The left ventricular size is normal. There is mild concentric left ventricular hypertrophy. Overa ll left ventricular systolic function is normal with, an EF between 55 - 60 %. The diastolic fillin g pattern is normal for the age of the patient 15.03. Normal LAP Grade 1 Diastolic Dysfunction. The right ventricle is normal in size. Normal LA size by volume 22+/-6 ml/m2. The right atrial size is normal. The aortic valve is trileaflet, and appears structurally normal. No aortic stenosis or regurgitation. The mitral valve is normal. Mild mitral regurgitation is present. The tricuspid valve appears structurally normal. Mild tricuspid regurgitation present. Right vent ricular systolic pressure is normal at < 35 mmHg. There is no pulmonic regurgitation present. The aortic root size is normal. IVC Not well visulized. There is no pericardial effusion. CONCLUSIONS -------- 1. There is mild concentric left ventricular hypertrophy. 2. Overall left ventricular systolic function is normal with, an EF between 55 - 60 %. 3. Normal LAP Grade 1 Diastolic Dysfunction. 4. Normal LA size by volume 22+/-6 ml/m2. 5. The aortic valve is trileaflet, and appears structurally normal. No aortic stenosis or regurgitati on. 6. Mild mitral regurgitation is present. 7. Mild tricuspid regurgitation present. 8. There is no pericardial effusion. COSMETOLOGY INSTRUCTOR: Ashley Irvin RDCS
[2021-01-10 11:06] LABS: African American GFR (CKD) 75.7 (60.0-200.0); Anion Gap 11.1 mmol/L (4.00-12.00); BUN/Creat Ratio 11.25 Ratio (12.00-20.00); Blood Urea Nitrogen 13.5 mg/dL (9.0-27.0); Calcium 9.3 mg/dL (8.7-10.3); Carbon Dioxide 20.9 mmol/L (21.6-31.8); Chol/HDL Ratio 2.95 Ratio; HDL Cholesterol 36.9 mg/dL (40.00-60.00); LDL Cholesterol,Calculated 48.7 mg/dL (0.0-131.0); Non-African American GFR(CKD) 65.3 (60.0-200.0); VLDL Calculation 23.4 mg/dL (5.00-40.00)
[2021-01-10] MEDS: metFORMIN 500 MG TAB PO SCH ×2 (12:41→21:26)
--- NOTE | 2021-01-10 13:04 | CT ---
EXAMINATION TYPE: CT brain wo con DATE OF EXAM: 01/10/2021 COMPARISON: None HISTORY: Syncope CT DLP: 1108.4 mGycm Automated exposure control for dose reduction was used. FINDINGS: Mild generalized degenerative change low-attenuation white matter no midline shift or mass effect. Ca lvarium intact. Orbits are symmetric and changes of chronic sinusitis noted. No evidence of midline shift or mass effect. IMPRESSION: DEGENERATIVE AND NONSPECIFIC WHITE MATTER CHANGES MOST TYPICAL REMOTE ISCHEMIA.
--- NOTE | 2021-01-10 15:03 | ECHOS ---
STRESS ECHOCARDIOGRAM INDICATIONS: Syncope BASELINE HEART RATE: 65 BASELINE BLOOD PRESSURE: 141/85 MAXIMUM HEART RATE: 149 MAXIMUM BLOOD PRESSURE: 211/78 85% MPHR: 136 100% MPHR: 160 METS: 11.1 MAXIMUM STAGE REACHED: 3 TOTAL EXERCISE TIME: 9:34 CLINICAL INFORMATION: Baseline rhythm is sinus mechanism, rate of 65, normal axis and intervals, poor R-wave progression. Baseline blood pressure 141/85 mmHg. Patient exercised on Sekou protocol for 9 minute 34 seconds, reaching a peak rate 149 beats per minute, which is equal to 93% of maximum predicted heart rate. Peak blood pressure 189/83 mmHg. Test was terminated secondary to fatigue. There was no chest pain. Electrocardiograph monitoring revealed no evidence of diagnostic ischemic ST deviation. FINDINGS: Baseline echocardiogram revealed normal wall motion. At peak exercise, there was normal wall motion augmentation with no hypokinesis or dyskinesis. CONCLUSION: 1. Good exercise tolerance with normal echocardiograph response to exercise. 2. Normal stress echocardiogram with no evidence of stress-induced ischemia. MMODL / IJN: [id number] /
--- NOTE | 2021-01-10 15:58 | US ---
EXAMINATION TYPE: US carotid duplex BILAT DATE OF EXAM: 01/10/2021 COMPARISON: CT 01/10/2021 CLINICAL HISTORY: syncope. EXAM MEASUREMENTS: RIGHT: Peak Systolic Velocity (PSV) cm/sec ----- Right CCA: 112 ----- Right ICA: 91.3 ----- Right ECA: 109 ICA/CCA ratio: 0.82 RIGHT: End Diastole cm/sec ----- Right CCA: 23.2 ----- Right ICA: 32.0 ----- Right ECA: 13.7 LEFT: Peak Systolic Velocity (PSV) cm/sec ----- Left CCA: 134 ----- Left ICA: 73.9 ----- Left ECA: 114 ICA/CCA ratio: 0.55 LEFT: End Diastole cm/sec ----- Left CCA: 26.2 ----- Left ICA: 25.2 ----- Left ECA: 20.2 VERTEBRALS (direction of flow): Right Vertebral: Antegrade Left Vertebral: Antegrade Rhythm: Normal Grayscale, color Doppler, spectral Doppler imaging performed of the carotid arteries. Waveform analys is does not show significant stenosis of the internal carotid arteries. IMPRESSION: No hemodynamic significant stenosis of the proximal internal carotid arteries by Doppler criteria, indirect measurement of carotid stenosis Criteria for Assigning % of Stenosis / Diameter reduction (Estimation based on the indirect measurements of the internal carotid artery velocities (ICA PSV). 1. Normal (no stenosis)=ICA PSV < 125 cm/s: ratio < 2.0: ICA EDV<40 cm/s. 2. Less than 50% stenosis=ICA PSV < 125 cm/s: ratio < 2.0: ICA EDV<40 cm/s. 3. 50 to 69% stenosis=ICA PSV of 125 to 230 cm/s: ration 2.0 ? 4.0: ICA EDV 40-100 cm/s. 4. Greater than 70% stenosis to near occlusion= ICA PSV > 230 cm/s: ratio > 4.0: ICA EDV > 100 cm/s. 5. Near occlusion= ICA PSV velocities may be low or undetectable: variable ratio and ICA EDV. 6. Total occlusion=unable to detect flow.
[2021-01-10] MEDS: ATORVASTATIN 80 MG TAB PO SCH (21:26)
--- NOTE | 2021-01-10 22:56 | P.PN ---
Subjective Progress Note Date: 01/10/21 Principal diagnosis: Syncope Mr. Santos is a 60-year-old male with a past medical history of COPD, hypertension, diabetes mellitus, GERD, hyperlipidemia, coronary artery disease status post stenting coming to the hospital with a chief complaint of syncopal episode. Patient states that he has history of having syncopal episodes because of severe pain. He mentions that he was sitting up and relaxing in a recliner this morning after having his breakfast when he started to have the syncopal episode and he lost his consciousness after feeling lightheaded. This episode lasted for few seconds and he felt that he passed out. Later on he was awake and he was shaky and sweaty after this episode. Patient denied having any chest pain or difficulty breathing associated with this episode. He denied having any nausea vomiting abdominal pain or diarrhea with this. Patient denied having any history of recent infections. He denies having any his hematuria or dysuria. Patient denied having any fevers chills or rigors. At the time of admission his vitals temperature 98.1, heart rate 57, respiratory rate 18, saturating at 95% on room air. He had labs drawn showing white count of 14.3, hemoglobin 15.9, platelets 244. Sodium 138, potassium 4.7, chloride 103, bicarb 26, BUN 15, creatinine 0.99 troponin less than 0.012 coronavirus PCR negative. Patient had a chest x-ray showing no acute cardiopulmonary process and an EKG showing sinus bradycardia with first-degree AV block. On 01/10/2021 patient is seen and examined at the bedside. No acute events reported by nursing staff. Patient was evaluated by cardiology and they recommended an echocardiogram and stress test. As a part of the evaluation of syncope patient had a CAT scan of his brain which was showing degenerative nonspecific white matter changes most typical remote ischemia. Patient also had bilateral carotid artery Doppler study done showing no significant stenosis b ilaterally. On reviewing the patient's vitals temperature of 98, heart rate 50s to 60s, respiratory rate 16, blood pressure 106 x 21 saturating at 94% on room air. On reviewing the patient's labs white count of 11.9, hemoglobin 15, platelets 183. Sodium 137, potassium 5, chloride 105, bicarb 20, BUN 13.5 and creatinine of 1.2. Patient medications have been reviewed Active Medications Albuterol Sulfate (Albuterol Nebulized 2.5 Mg/3 Ml) 2.5 mg INHALATION RT-Q6H PRN PRN Reason: Shortness Of Breath Aspirin (Aspirin 81 Mg) 81 mg PO DAILY [facility] Last Admin: 01/10/21 08:18 Dose: 81 mg Documented by: Atorvastatin Calcium (Atorvastatin 80 Mg Tab) 80 mg PO HS [facility] Last Admin: 01/10/21 21:26 Dose: 80 mg Documented by: Lisinopril (Lisinopril 5 Mg Tab) 5 mg PO DAILY [facility] Last Admin: 01/10/21 08:17 Dose: 5 mg Documented by: Metformin HCl (Metformin 500 Mg Tab) 500 mg PO BID [facility] Last Admin: 01/10/21 21:26 Dose: 500 mg Documented by: Multivitamins (Multivitamins, Thera 1 Each Tab) 1 each PO DAILY [facility] Last Admin: 01/10/21 08:17 Dose: 1 each Documented by: Pantoprazole Sodium (Pantoprazole 40 Mg Tablet) 40 mg PO AC-BRKFST [facility] Last Admin: 01/10/21 08:17 Dose: 40 mg Documented by: Spironolactone (Spironolactone 25 Mg Tab) 25 mg PO DAILY [facility] Last Admin: 01/10/21 08:18 Dose: 25 mg Documented by: Objective - Vital Signs Vital signs: Vital Signs Temp 98.1 F 01/10/21 07:25 Pulse 59 L 01/10/21 08:00 Resp 17 01/10/21 08:00 BP 128/76 01/10/21 07:25 Pulse Ox 93 L 01/10/21 07:25 Intake & Output 01/09/21 01/10/21 01/10/21 18:59 06:59 18:59 Weight 112.491 kg 112.491 kg Other: # Voids 2 - Exam PHYSICAL EXAMINATION: GENERAL: The patient is alert and oriented x3, not in any acute distress. HEENT: Pupils are round and equally reacting to light. EOMI. No scleral icterus. CARDIOVASCULAR: S1 and S2 present. No murmurs, rubs, or gallops. PULMONARY: Bilateral Breath sounds positive. No wheezes or crackles. ABDOMEN: Soft, nontender, nondistended, normoactive bowel sounds. No palpable organomegaly. MUSCULOSKELETAL: No joint swelling or deformity. EXTREMITIES: No cyanosis, clubbing, or pedal edema. NEUROLOGICAL: No focal neurological deficits. Strength 5 out of 5 in all 4 extremities. Cranial nerves 2-12 grossly intact. SKIN: No rashes. - Labs CBC & Chem 7: 01/10/21 06:50 01/10/21 06:50 Labs: Abnormal Lab Results - Last 24 Hours (Table) 01/09/21 01/09/21 Range/Units 11:03 11:03 WBC 14.3 H (3.8-10.6) k/uL Neutrophils # 9.2 H (1.3-7.7) k/uL Glucose 131 H (74-99) mg/dL Assessment and Plan Assessment: ASSESSMENT Syncopal episode Bradycardia with first-degree heart block History of coronary artery disease status post stenting Hypertension Diabetes mellitus Hyperlipidemia History of multiple joint osteoarthritis PLAN:Patient had a stress test done that was negative for any inducible ischem ia. He also had an echocardiogram done showing ejection fraction of 55 to 60%. Bilateral carotid artery Doppler that was negative for any stenosis bilaterally. And a CAT scan of the brain showing some white matter changes most typical with remote ischemia. So neurology has been consulted today. For now patient to be continued on aspirin and statin. Further recommendations depending on the pr ogress of the patient the treatment plan was discussed in detail with the patient in detail at bedside..
[2021-01-11 07:06] VITALS: RESP 18
[2021-01-11] MEDS: PANTOPRAZOLE 40 MG TABLET PO SCH (09:17)
[2021-01-11] MEDS: ASPIRIN 81 MG PO SCH (09:17)
[2021-01-11] MEDS: SPIRONOLACTONE 25 MG TAB PO SCH (09:17)
[2021-01-11] MEDS: MULTIVITAMINS, THERA 1 EACH TAB PO SCH (09:17)
[2021-01-11] MEDS: metFORMIN 500 MG TAB PO SCH (09:18)
[2021-01-11] MEDS: lisinopriL 5 MG TAB PO SCH (09:18)
--- NOTE | 2021-01-11 09:37 | P.CNNES ---
History of Present Illness Consult date: 01/11/21 Requesting physician: Kimberli Alarcon Reason for Consult: syncope History of Present Illness: This is a 60-year-old gentleman with history of vasovagal syncope, diabetes mellitus bradycardia hypertension, hyperlipidemia, type 2 diabetes, coronary artery disease status post stent in 2019 presented to the emergency department on 01/09/2021 for his syncopal episode. Patient stated that on and 2020 he got up in the morning and he drank oral juice and took his medication as usual then sat down and within 10-15 minutes later well when he was sitting down at his computer he got lightheaded, felt dizzy and then the patient passed out he passed out. He feel it was short but sure of exact duration. The episode was not witnessed. After waking up his girlfriend came out of the shower and she knows that he was pale and the was a sweating. Patient denies of urinary, bowel incontinence and denies of any tongue soreness or bite. He denies any muscle soreness. Patient stated that the he's been having the episodes of syncope in which if he has a pain or trauma he'll pass out but he never has any jerk in of any extremities, urinary, bowel incontinence or any tongue bites. She denies of any focal weakness, numbness, visual disturbance. Denies of any headache. He denies of any history of seizures, stroke or TIAs. He stated that he had the an event monitor that he had to wear about 20 years ago and his heart rate was as low as 30s but stated nothing was done about it. He stated that he had a concussion to his head and during the fifth or sixth sled sliding and he had the tree and he lost consciousness but was not hospitalized. He is unsure how long he lost consciousness for. Regarding his history he stated that his knowledge was normal and the, term, vaginal delivery and there is no complication. There is no family history of seizures. Patient is on home medication of metoprolol 25 mg 1 tablet twice a day, lisinopril, aspirin, Lipitor, metformin, spironolactone, nitroglycerin when n ecessary. Some of the workup in the hospital consisted of: Initial vital signs: Pressure of 144/79, heart rate of 57, respiratory of 18, temperature of 98.1 Fahrenheit oral and pulse ox of 95% room air. Since heart rate has been as low as in the 40s as recorded in the EMR. And blood pressure was low as 101/66 Initial white blood cells 1414 repeated 11.9 thousand. Sodium is 138, creatinine is 0.99, initial serum glucose is 131, calcium 9.7, magnesium 2.2, AST of 32, ALT of 33. [place] virus PCR was not detected that. CT of the head is reported as degenerative and nonspecific white matter changes most typical remote ischemia. Personally reviewed the CT of the head and there is no acute or subacute ischemia and there is no intraperitoneal hemorrhage. Carotid duplex is reported as no hemodynamic significant stenosis of the proximal internal carotid arteries by Doppler criteria, and direct measurement of carotid stenosis. 2D echo is reported as mild concentric left ventricle hypertrophy. Ejection fraction of 55-60%. Normal left atrial size by volume. Stress echo is reported as good exercise tolerance with normal echocardiogram response to exercise. Normal stress echocardiogram with no evidence of stress induced ischemia. Review of Systems Review of system: The 12 point system was reviewed and apparent positive and negative per HPI. Past Medical History Past Medical History: COPD, Diabetes Mellitus, GERD/Reflux, Hyperlipidemia, Hypertension, Myocardial Infarction ([place]), Musculoskeletal Disorder, Osteoarthritis ([place]) Additional Past Medical History / Comment(s): right achilles tendon rupture on Last Myocardial Infarction Date:: 2018 History of Any Multi-Drug Resistant Organisms: None Reported Past Surgical History: Heart Catheterization With Stent, Joint Replacement, Orthopedic Surgery Additional Past Surgical History / Comment(s): right knee X2 partial replacement Past Anesthesia/Blood Transfusion Reactions: No Reported Reaction Date of Last Stent Placement:: 2018 Past Psychological History: No Psychological Hx Reported Smoking Status: Never smoker - Past Family History Father Family Medical History: CVA/TIA Additional Family Medical History / Comment(s): triple bypass surgery Mother Family Medical History: CVA/TIA, Myocardial Infarction ([place]), Renal Disease Additional Family Medical History / Comment(s): hemodialysis Medications and Allergies Home Medications Medication Instructions Recorded Confirmed Type Multivitamins, Thera [Multivitamin 1 tab PO DAILY 05/03/18 01/09/21 History (formulary)] Omeprazole 20 mg PO DAILY 05/03/18 01/09/21 History Atorvastatin [Lipitor] 80 mg PO HS #90 tab 05/05/18 01/09/21 Rx Metoprolol Tartrate [Lopressor] 25 mg PO BID #60 tab 05/06/18 01/09/21 Rx Nitroglycerin Sl Tabs [Nitrostat] 0.4 mg SUBLINGUAL Q5M PRN #25 tab 05/06/18 01/09/21 Rx Spironolactone [Aldactone] 25 mg PO DAILY #30 tab 05/06/18 01/09/21 Rx metFORMIN HCL [Glucophage] 500 mg PO BID 08/30/20 01/09/21 History Albuterol Sulfate [Ventolin HFA] 2 puff INHALATION RT-Q6H PRN 01/09/21 01/09/21 History Aspirin EC [Ecotrin Low Dose] 81 mg PO DAILY 01/09/21 01/09/21 History lisinopriL [Zestril] 5 mg PO DAILY tab 01/10/21 Rx Allergies Allergy/AdvReac Type Severity Reaction Status Date / Time No Known Allergies Allergy Verified 01/09/21 11:43 Physical Examination - Vital Signs Vital Signs: Vital Signs Temp Pulse Pulse Resp BP Pulse Ox 01/11/21 07:00 98 F 53 L 18 117/66 93 L 01/11/21 02:00 59 L 01/11/21 01:55 98.0 F 59 L 17 123/74 95 01/10/21 19:45 98.9 F 64 19 120/73 95 01/10/21 19:38 16 01/10/21 14:45 98 F 57 L 16 102/61 94 L 01/10/21 14:00 59 L 16 01/10/21 12:05 94 L Intake and Output 01/10/21 01/11/21 01/11/21 22:59 06:59 14:59 Intake Total 618 500 Balance 618 500 Intake: Oral 618 500 Other: Voiding Method Toilet # Voids 2 2 GENERAL: The patient is lying in bed and is not in acute distress. CHEST: The heart rate is regular rate rhythm. No murmurs to auscultation. No carotid bruit bilaterally. LUNG: Clear to auscultation bilaterally no wheezing noted throughout. Not labored breathing. ABDOMEN/GI: Bowel sounds present in all 4 quadrants. No tenderness to palpation throughout. NEUROLOGICAL: Higher mental function: The patient is awake, alert, oriented to self, place and time. Patient is following commands. No aphasia and no neglect. Cranial nerves: The pupils are round, equal and reactive to light and accommodation. Visual olm[place] are full to confrontation throughout. Extraocular movement is intact no nystagmus is noted. Facial sensation is normal to touch throughout. The facial strength is normal throughout. Hearing is normal bilaterally to hand rub. Tongue is midline and moved [id number] without any difficulty. No dysarthria is noted. Shoulder shrug is normal bilaterally. Motor: The strength is 5 over 5 throughout. Normal tone and bulk. Cerebellum: Normal finger to nose heel to dorantes bilaterally. Sensation: Sensation is normal to touch throughout. Reflexes (right/left): 2+ throughout. Plantars are downgoing bilaterally. Results - Laboratory Findings CBC and BMP: 01/10/21 06:50 01/10/21 06:50 Abnormal Lab Findings: Abnormal Labs 01/09/21 01/09/21 01/10/21 11:03 11:03 06:50 WBC 14.3 H MCHC Neutrophils # 9.2 H Lymphocytes # Carbon Dioxide 20.9 L BUN/Creatinine Ratio 11.25 L Glucose 131 H HDL Cholesterol 36.90 L 01/10/21 06:50 WBC 11.95 H MCHC 31.5 L Neutrophils # Lymphocytes # 6.16 H Carbon Dioxide BUN/Creatinine Ratio Glucose HDL Cholesterol Assessment and Plan Assessment: Syncope. Does not appear seizure or typical for seizure. Sinus bradycardia (as low as in 40's). He stated he had event monitor about 20 years ago and was as low as 30's. History of vasovagal syncope Chronic small vessel disease per CT head. History of concussion with LOC during 5th or 6th grade History of coronary artery disease status post stent in 2019 History of retention Type 2 diabetes Hyperlipidemia Plan: Recommend a routine EEG as well as MRI of the brain with and without. The patient was notified that the that at routine EEG likely will not be done today since the there is no available spots for today. Therefore the patient wanted all the workup to be done as an outpatient. I wrote script for 2 1/2 hour EEG ambulatory and it will be cooridnated by technology officer. I gave patient a prescription for MRI the brain with and without. Ordered orthostatic vitals Consider an event monitor for the patient to be discharged with. Cardiology is holding the beta anthony and decreased left lisinopril 5 mg daily Cardiology team is on board. We'll defer the rest of the medical management to the primary team. Upon discharge recommend the patient to follow-up with neurology within 2 weeks. Patient was notified that per the [place] DMV because of his syncopal episode he cannot drive for 6 month until loss no further episodes a. He cannot use h eavy machinery, swimming unassisted and the avoid heights. The plan is discussed with patient, his girlfriend who is at bedside and his nurse. Thank for the consultation. There is no further work-up otherwise. Wil Garcia M.D. Neuro-hospitalist Time with Patient: Greater than 30
[2021-01-11 10:19] LABS: Basophils # (A) 0.05 X 10*3/uL (0.00-0.10); Basophils % (A) 0.4 %; Eosinophils # (A) 0.18 X 10*3/uL (0.04-0.35); Eosinophils % (A) 1.5 %; HCT 45.9 % (39.6-50.0); HGB 14.7 g/dL (13.0-17.0); Lymphocytes # (A) 6.81 X 10*3/uL (0.90-5.00); MCH 29.2 pg (27.0-32.0); MCV 91.3 fL (80.0-97.0); Mean Platelet Volume 12.2 fL (9.5-12.2); Monocytes # (A) 1.07 X 10*3/uL (0.20-1.00); Monocytes % (A) 8.8 %; Neutrophils # (A) 4.03 X 10*3/uL (1.80-7.70); Neutrophils % (A) 33.1 %; Platelet Count 218 X 10*3/uL (140-440); RBC 5.03 X 10*6/uL (4.40-5.60); WBC 12.17 X 10*3/uL (4.50-10.00)
[2021-01-11 10:57] LABS: African American GFR (CKD) 75.7 (60.0-200.0); Anion Gap 11.3 mmol/L (4.00-12.00); BUN/Creat Ratio 13.33 Ratio (12.00-20.00); Calcium 9.2 mg/dL (8.7-10.3); Carbon Dioxide 23.7 mmol/L (21.6-31.8); Non-African American GFR(CKD) 65.3 (60.0-200.0); Potassium 4.9 mmol/L (3.5-5.5)
[2021-01-11 12:33] LABS: Amorphous Sediment,Urine Many /hpf; Appearance,Urine Turbid (Clear); Bilirubin,Urine Negative (Negative); Blood,Urine Negative (Negative); Color,Urine Yellow; Glucose,Urine (UA) Negative (Negative); Ketones,Urine Negative (Negative); Leukocyte Esterase,Urine Negative (Negative); Mucus,Urine Occasional /hpf; Nitrite,Urine Negative (Negative); Protein,Urine Trace (Negative); Specific Gravity,Urine 1.027 (1.001-1.035)
[2021-01-11 13:27] VITALS: BP 130/73; PULSE 60; TEMP 96.6
--- NOTE | 2021-01-11 20:23 | DS ---
DISCHARGE SUMMARY FINAL DIAGNOSES: 1. Syncopal episode, possibly vasovagal. 2. Bradycardia with first degree AV block. 3. Negative stress test. 4. History of coronary artery disease, status post stenting. 5. Hypertension. 6. Diabetes mellitus, type 2. 7. Hyperlipidemia. 8. History of multiple joint degenerative joint disease. 9. Increased WBC. DISCHARGE DISPOSITION: The patient will be discharged in stable condition with guarded prognosis. Cardiology cleared the patient for discharge HISTORY OF PRESENT ILLNESS: This 60year-old gentleman with a past medical history of multiple medical problems admitted with syncope and multiple medical issues, as mentioned earlier. The patient was monitored closely. Cardiology saw the patient. Neurology saw the patient as well. Otherwise, the patient also had complete workup including 2D echo with Doppler which did not show any acute abnormality. White count is elevated, but however, UA was normal. Recommended close followup in the outpatient setting. The patient also had some bradycardia. The syncope could also be due to bradycardia. I recommended the patient to follow up with the patient's own aeronautical drafter and also obtain a long-term monitor as well. The patient and the patient's family, understands and agrees. DISCHARGE ADVICE AND MEDICATIONS: 1. Hold the beta blockers for now. 2. Follow up with Dr. Clifford with CBC, BMP and continued follow up. 3. Follow up with the patient's own [employer] Hop as mentioned earlier. 4. Aspirin 81 mg daily. 5. Metformin 500 mg b.i.d. 6. Multivitamins 1 p.o. daily. 7. Omeprazole 20 mg daily. 8. Albuterol p.r.n. 9. Aldactone 25 mg daily. 10.Lipitor 80 mg q.h.s. 11.Nitrostat 0.4 sublingually p.r.n. 12.Zestril 5 mg p.o. daily. MMODL / IJN: [id number] /
== END 2021-01-11 13:59 | disposition home or self-care (01) ==
LOC: EC 09:28 → 6NMEDSUR 12:39
PROVIDERS: ADMIT Internal Medicine; ATTEND Internal Medicine
DX: R55 Syncope and collapse (principal); R00.1 Bradycardia, unspecified; I44.0 Atrioventricular block, first degree; I95.9 Hypotension, unspecified; D72.829 Elevated white blood cell count, unspecified; E11.9 Type 2 diabetes mellitus without complications; I11.9 Hypertensive heart disease without heart failure; J44.9 Chronic obstructive pulmonary disease, unspecified; E78.5 Hyperlipidemia, unspecified; I25.2 Old myocardial infarction; K21.9 Gastro-esophageal reflux disease without esophagitis; M13.0 Polyarthritis, unspecified; I25.10 Atherosclerotic heart disease of native coronary artery without angina pectoris; Z20.822 Contact with and (suspected) exposure to COVID-19; Z79.84 Long term (current) use of oral hypoglycemic drugs; Z79.82 Long term (current) use of aspirin; Z79.899 Other long term (current) drug therapy; Z95.5 Presence of coronary angioplasty implant and graft; Z96.651 Presence of right artificial knee joint; Z87.820 Personal history of traumatic brain injury; Z87.828 Personal history of other (healed) physical injury and trauma; Z82.3 Family history of stroke; Z82.49 Family history of ischemic heart disease and other diseases of the circulatory system; Z84.1 Family history of disorders of kidney and ureter
CPT/HCPCS: 96360; 99285; 36415; 93005; 93306; 93351; 80061; 80053; 80048 ×2; 83735; 84484; 85025 ×3; 85610; 85730; 81001; 87635; 71046; 93880; 70450; G0378 ×3

== ENCOUNTER → 2021-01-18 | Outpatient (CLI) | payer BC | LOC: NEUROMAIN 07:42 | PROVIDERS: ATTEND Student in an Organized Health Care Education/Training Program | DX: R55 Syncope and collapse (principal) | CPT/HCPCS: 95713 ==

== ENCOUNTER → 2022-08-08 | Outpatient (CLI) | payer BC ==
[2022-08-08 15:18] LABS: HCT 48.8 %; MCH 30.2 pg; MCHC 32.8 d/dL; MCV 92.2 FL; Mean Platelet Volume 11.6 FL; NRBC Per 100 WBC 0 X 10*3/uL; Platelet Count 242 X 10*3/uL; RBC 5.29 X 10*6/uL; RDW 13.2 %; WBC 10.13 X 10*3/uL
[2022-08-08 15:53] LABS: BUN/Creat Ratio 15.36 Ratio; Blood Urea Nitrogen 16.9 mg/dL; Calcium 9.8 mg/dL; Carbon Dioxide 23.4 mmol/L; Chloride 105 mmol/L; Glucose 136 mg/dL; Potassium 4.9 mmol/L; Sodium 138 mmol/L
[2022-08-08 16:43] LABS: INR <0.93 sec; Prothrombin Time 10.3 sec
== END | disposition home or self-care (01) ==
LOC: LABPAT 10:10
PROVIDERS: ATTEND Orthopaedic Surgery
DX: Z01.812 Encounter for preprocedural laboratory examination (principal); Z22.322 Carrier or suspected carrier of Methicillin resistant Staphylococcus aureus
CPT/HCPCS: 36415; 80048; 85025; 85610; 87070

== ENCOUNTER 2022-08-28 08:05 | Inpatient (IN) | payer BC ==
--- NOTE | 2022-08-27 18:47 | HP ---
HISTORY AND PHYSICAL DATE OF SURGERY: 08/28/2022. HISTORY OF PRESENT ILLNESS: Jeffrey Santos is a 62-year-old gentleman seen with symptomatic right knee osteoarthritis with history of previous patellofemoral compartment joint replacement. We discussed options for treatment. He elected to proceed with revision right total knee arthroplasty. Consent was obtained. Cardiac clearance was provided. PAST MEDICAL HISTORY: Hypertension, hyperlipidemia, [id number] diabetes. PAST SURGICAL HISTORY: Right knee arthroscopy, right patellofemoral compartment arthroplasty. DAILY MEDICATIONS: 1. Aspirin. 2. Atorvastatin. 3. Lisinopril. 4. Metformin. 5. Metoprolol. 6. Omeprazole. ALLERGIES: None. SOCIAL HISTORY: He denies tobacco use. PHYSICAL EVALUATION OF THE RIGHT KNEE: He has a well-healed anterior incisions. Range of motion 0 to 120. He has a mild effusion. Tenderness to medial joint line. Ligaments stable. Hip rotation without pain. Distal neurovascular exam intact. RADIOGRAPHS: Right knee radiographs revealed osteoarthritic changes as well as previous patellofemoral compartment arthroplasty. IMPRESSION: 1. Painful right knee patellofemoral compartment arthroplasty. 2. Right knee osteoarthritis. 3. Hypertension. 4. Hypothyroidism. 5. [id number] diabetes. PLAN: Revision of right total knee arthroplasty. MMODL / IJN: [id number] /
[~2022-08-28 08:05] MED LIST changes: +ACETAMINOPHEN TAB 500 MG TAB PO PRN; +HYDROmorphone 0.5 MG/0.5 ML SYRINGE IVP PRN; -LACTATED RINGERS 1,000 ML IV SCH; +MELOXICAM 7.5 MG TAB PO PRN; +ONDANSETRON 4 MG/2 ML VIAL IVP ONE; +SCOPOLAMINE 1 MG/72 HR PATCH TRANSDERM ONE; +TRANEXAMIC 1,000 MG/100ML-NACL 1,000 MG in SALINE 1 100ML.BAG IVPB PRN
[2022-08-28] MEDS: LACTATED RINGERS 1,000 ML IV SCH ×3 (09:14→23:27)
[2022-08-28 09:23] LABS: Glucose,Whole Blood 108 mg/dL (70-110)
[2022-08-28] MEDS ORDERED: fentaNYL (PF) 50 MCG/ML 2 ML AMP IVP ONE (10:05)
[2022-08-28] MEDS ORDERED: ROPIVACAINE 5 MG/ML 30 ML VIAL ONE (10:17)
[2022-08-28] MEDS ORDERED: SODIUM CHLORIDE 0.9% (PF) 10 ML VIAL ONE (10:17)
[2022-08-28] MEDS ORDERED: TRANEXAMIC 1,000 MG/100ML-NACL PREMIX BAG ONE (10:17)
[2022-08-28] MEDS ORDERED: PROPOFOL 10 MG/ML 20 ML VIAL IV ONE (10:17)
[2022-08-28] MEDS ORDERED: MIDAZOLAM 2 MG/2 ML VIAL ONE (10:17)
[2022-08-28] MEDS ORDERED: KETAMINE 10 MG/ML 20 ML VIAL ONE (10:17)
[2022-08-28] MEDS ORDERED: ePHEDrine 50 MG/ML 1 ML VIAL ONE (10:17)
--- NOTE | 2022-08-28 10:37 | P.ANPRN ---
Procedure Note - Anesthesia - Nerve Block Performed Right Adductor Canal Infusion Time Out Performed: Yes (1003) Date of Procedure: 08/28/22 Procedure Start Time: 10:04 Procedure Stop Time: 10:09 Location of Patient: PreOp Indication: Acute Post-Operative Pain, Requested by Surgeon Specifically requested for management of pain by DrAlo: Adriano Egan Sedation Type: Sedate with meaningful contact maintained Preparation: Sterile Prep Position: Supine Catheter Depth at Skin (cm): 8 Catheter: Indwelling Needle Types: Pajunk Needle Gauge: 21 Ultrasound used to visualize needle placement: Yes Ultrasound used to observe medication spread: Yes Injectate: 0.5% Ropivacaine (see comment for volume) (15CC + 5CC NACL PF) Blood Aspirated: No Pain Paresthesia on Injection Noted: No Resistance on Injection: Normal Image Stored and Saved: Yes Events: Uneventful and Well Tolerated
--- NOTE | 2022-08-28 10:38 | P.ANPRN ---
Procedure Note - Anesthesia - Nerve Block Performed Right Popliteal Single Time Out Performed: Yes (1003) Date of Procedure: 08/28/22 Procedure Start Time: 10:10 Procedure Stop Time: 10:12 Location of Patient: PreOp Indication: Acute Post-Operative Pain, Requested by Surgeon Specifically requested for management of pain by DrAlo: Adriano Egan Sedation Type: Sedate with meaningful contact maintained Preparation: Sterile Prep Position: Supine Catheter: None Needle Types: Pajunk Needle Gauge: 21 Ultrasound used to visualize needle placement: Yes Ultrasound used to observe medication spread: Yes Injectate: 0.5% Ropivacaine (see comment for volume) (15cc+ 5cc nacl pf) Blood Aspirated: No Pain Paresthesia on Injection Noted: No Resistance on Injection: Normal Image Stored and Saved: Yes Events: Uneventful and Well Tolerated
[2022-08-28] MEDS ORDERED: LACTATED RINGERS 1,000 ML IV ONE (11:21)
[2022-08-28] MEDS ORDERED: ceFAZolin 1,000 MG in SODIUM CHLORIDE 0.9% 1,000 ML IRRIGATION ONE (11:22)
[2022-08-28] MEDS ORDERED: ONDANSETRON 4 MG/2 ML VIAL IVP PRN (12:09)
[2022-08-28] MEDS ORDERED: HYDROmorphone 1 MG/ML 1 ML SYRINGE IVP PRN (12:09)
[2022-08-28] MEDS ORDERED: NALOXONE 0.4 MG/ML 1 ML VIAL IV PRN (12:09)
[2022-08-28] MEDS ORDERED: HYDROmorphone 0.5 MG/0.5 ML SYRINGE IVP PRN ×2 (12:09)
--- NOTE | 2022-08-28 12:09 | P.OP ---
Date of Procedure: 08/28/22 Preoperative Diagnosis: 1. Right knee painful patellofemoral compartment arthroplasty 2. Right knee osteoarthritis Postoperative Diagnosis: 1. Right knee painful patellofemoral compartment arthroplasty 2. Right knee osteoarthritis Procedure(s) Performed: Revision right total knee arthroplasty Implants: 1. Depuy attune size 7 cruciate retaining right cemented femur 2. Depuy attune size 7 fixed bearing cemented tibial baseplate 3. Depuy attune size 7 fixed bearing cruciate retaining 7 mm polyethylene tibial insert Anesthesia: regional (Adductor canal catheter), spinal Surgeon: Adriano Egan Dial Refinisher #1: Wale Henson Estimated Blood Loss (ml): 45 Pathology: none sent Condition: stable Disposition: PACU Indications for Procedure: 62-year-old patient seen with painful right knee patellofemoral compartment arthroplasty along with medial compartment osteoarthritis. After treatment options were discussed, he elected to proceed with revision right total knee arthroplasty. Operative Findings: See description of procedure Description of Procedure: Patient was taken to the operative suite after having an adductor canal catheter placed by the department of anesthesia. Patient underwent a spinal anesthetic by the department of anesthesia. Patient was given preoperative IV intake antibiotics and TXA. A well-padded tourniquet was placed about the right lower extremity. The lower extremity was then prepped and draped in the normal sterile orthopedic fashion. The extremity was elevated, a tourniquet was insufflated to 300. A standard anterior incision was made sharply through skin. Dissection was taken down through the subcutaneous soft tissues down to the extensor mechanism. A medial arthrotomy was performed, patella was everted and knee was flexed. There was a well fixed cemented patellofemoral compartment arthroplasty. I started by working on extracting the femoral component. I used some flexible osteotomes and was able to remove that without difficulty. The cement mantles appeared stable. I decided to leave the patella to see if it would work well with our femoral component. I now proceeded with the femoral preparation. I introduced my distal intramedullary femoral drill. I then introduced the distal femoral cutting jig. Randall AHN secured the cutting jig with 2 pins. I held retractors in position while Randall AHN performed the distal femoral resection through the guide area we now removed her distal femoral cutting guide. We now placed our 4-in-1 femoral cutting block and positioned and it was secured with 2 pins by Randall AHN while I held the block in position. The distal femoral finishing was now completed. A proximal tibial cutting guide was positioned. I held the guide in the appropriate position with both hands well Randall AHN inserted stabilizing pins into the guide. Proximal tibial cut was made. We now placed a trial femoral component into position, along with an appropriate size tibial tray and insert. We now took the knee through range of motion and had full extension good flexion and good overall soft tissue balance noted. The patella appeared to track very nicely. The polyethylene patella appeared to be in good condition. I decided to go and leave the well fixed patella in place. Drill holes were made through the femoral component. All trial components were removed after marking off the appropriate rotation of the tibia. Retractors were now positioned along the proximal tibia. An appropriate keel punch was made with the appropriate size tibial guide by myself on Randall AHN assisted by holding retractors. At this point appropriate size implants were chosen and opened. The joint was irrigated copiously with pulse lavage mechanical irrigation. The posterior capsule was infiltrated with local analgesic. The wound was irrigated with pulse lavage mechanical irrigation. We mixed antibiotic methylmethacrylate. We placed the knee into flexion. We placed multiple retractors assisted by Randall AHN to expose the proximal tibia. Once the methyl methacrylate was ready, the tibial component was cemented into place removing any excess met hylmethacrylate form by both myself and Randall AHN. The femoral component was cemented into place removing the removing any excess methylmethacrylate performed by both myself and Randall AHN. We then inserted the appropriate size polyethylene tibial insert. We made sure that it was locked into position. We took the knee into full extension, and then back in a flexion making sure we had removed any excess methylmethacrylate. We kept the knee in full extension, patellar clamp in position until methylmethacrylate had hardened. Once it had hardened the patellar clamp was removed. The knee was taken through full range of motion. The patella tracked nicely. There was good soft tissue balancing. The tourniquet was now released. Additional hemostasis was achieved via electrocautery. A second gram of TXA was given. The wound again was irrigated with pulse lavage mechanical irrigation. The extensor mechanism was repaired with Vicryl. We checked the repair with range of motion and it was stable. The subcutaneous soft tissues were repaired with Vicryl in layers. The skin was approximated with pernio/Dermabond. Sterile dressings were applied followed by loose web roll and Marco Antonio bandage. The patient was transferred to a bed, and taken to recovery in stable and satisfactory condition. Randall AHN assisted with this complex procedure.
--- NOTE | 2022-08-28 12:46 | XR ---
EXAMINATION TYPE: XR knee limited RT DATE OF EXAM: 08/28/2022 12:40 PM INDICATION: Patient age:Male; 62 years old; Reason for study: Evaluation for Postop abnormality and alignment; H. COMPARISON: Right knee radiograph 07/04/2022 TECHNIQUE: The Right knee(s) was examined in frontal and crosstable lateral projections. FINDINGS: Postsurgical changes from total right knee arthroplasty with distal femoral and proximal tibial components. Hardware appears intact with appropriate alignment. There is associated soft tissu e gas and edema. No acute fracture or dislocation. IMPRESSION: Postsurgical changes from total right knee arthroplasty. Hardware appears intact with appropriate ali gnment.
[2022-08-28] MEDS ORDERED: ROPIVACAINE 1,100 MG, SODIUM CHLORIDE 0.9% 500 ML 330 ML, EMPTY PAIN BALL 1 EACH MISCELLANE PRN ×2 (12:49)
[2022-08-28 12:58] LABS: Glucose,Whole Blood 122 mg/dL (70-110)
[2022-08-28] MEDS: HYDROcodone/APAP 7.5-325MG 1 EACH TAB PO PRN (16:06)
[2022-08-28 17:03] LABS: Glucose,Whole Blood 212 mg/dL (70-110)
[2022-08-28] MEDS ORDERED: DEXTROSE 50% SYRINGE 50 ML IVP PRN ×2 (17:33)
--- NOTE | 2022-08-28 17:36 | P.CONS ---
History of Present Illness - Reason for Consult Consult date: 08/28/22 - History of Present Illness Patient is a 62-year-old male with PMH of CAD post stent, diabetes mellitus, dyslipidemia, CLL, bradycardia the presents to [facility] for elective surgery. He underwent right total knee arthroplasty with Dr. Egan. [facility] has been consulted for medical management of this patient. Patient reports 8 out of 10 severity pain in his right knee. He feels the urgency to void but has not been able to so far. He has not had a bowel movement nor passed gas. Patient has no other complaints. Pertinent positives and negatives as discussed in HPI, a complete review of systems was performed and all other systems are negative. General: non toxic, no distress, appears at stated age Derm: warm], dry Head: atraumatic, normocephalic, symmetric Eyes: EOMI, no lid lag, anicteric sclera Cardiovascular: Bradycardia, no murmur Lungs: CTA bilateral, no rhonchi, no rales , no accessory muscle use Ext: no gross muscle atrophy, no edema, no contractures Neuro: no focal neuro deficits Psych: Alert, oriented, appropriate affect CAD post stent Diabetes mellitus Dyslipidemia CLL Bradycardia Based on my assessment of this patient, this patient meets a moderate complexity level of care. Patient has a chronic diagnosis of CAD post stent, diabetes mellitus, dyslipidemia, CLL, bradycardia. CAD post stent: Continue ASA 81 mg PO QD, Lipitor 80 mg PO QHS, Metoprolol 25 mg PO QD. Diabetes mellitus: ISS. Hypoglycemic precautions. Accuchecks ACHS. Dyslipidemia: Lipitor as above. CLL: Follows Oncologist out of [place]. Bradycardia: Asymtomatic. Lovenox SQ for DVT prophylaxis. is decision maker if he can't make decisions for himself. FULL CODE. I have reviewed the following immigration consultant notes: Surgical note reviewed. I have reviewed the results of the following tests: POC glucose ranging from 108-212. I have ordered the following tests: Agree with CBC tomorrow. I have discussed the care of this patient with the following independent historian: I have independently interpreted the following test below: I have discussed the management of this patient with the following physician: Past Medical History Past Medical History: Diabetes Mellitus, GERD/Reflux, Hyperlipidemia, Hypertension, Myocardial Infarction (CA), Musculoskeletal Disorder, Osteoarthritis (OA) Additional Past Medical History / Comment(s): right achilles tendon rupture on Last Myocardial Infarction Date:: 2018 History of Any Multi-Drug Resistant Organisms: None Reported Past Surgical History: Heart Catheterization With Stent, Joint Replacement, Orthopedic Surgery Additional Past Surgical History / Comment(s): arthroscopy right knee, right knee partial replacement, right patellar release, right achilles tendon repair Past Anesthesia/Blood Transfusion Reactions: No Reported Reaction Date of Last Stent Placement:: 2018 Past Psychological History: No Psychological Hx Reported Smoking Status: Never smoker Past Alcohol Use History: None Reported Past Drug Use History: None Reported - Past Family History Father Family Medical History: CVA/TIA Additional Family Medical History / Comment(s): triple bypass surgery Mother Family Medical History: CVA/TIA, Myocardial Infarction (CA), Renal Disease Additional Family Medical History / Comment(s): hemodialysis Medications and Allergies Home Medications Medication Instructions Recorded Confirmed Type Multivitamins, Thera [Multivitamin 1 tab PO DAILY 05/03/18 08/28/22 History (formulary)] Omeprazole 20 mg PO DAILY 05/03/18 08/28/22 History Atorvastatin [Lipitor] 80 mg PO HS #90 tab 05/05/18 08/28/22 Rx Nitroglycerin Sl Tabs [Nitrostat] 0.4 mg SUBLINGUAL Q5M PRN #25 tab 05/06/18 08/23/22 Rx Spironolactone [Aldactone] 25 mg PO DAILY #30 tab 05/06/18 08/28/22 Rx metFORMIN HCL [Glucophage] 500 mg PO BID 08/30/20 08/28/22 History Aspirin EC [Ecotrin Low Dose] 81 mg PO DAILY 01/09/21 08/23/22 History lisinopriL [Zestril] 5 mg PO DAILY tab 01/10/21 08/23/22 Rx Metoprolol Succinate [Metoprolol 25 mg PO DAILY 08/23/22 08/23/22 History Succinate ER] Allergies Allergy/AdvReac Type Severity Reaction Status Date / Time No Known Allergies Allergy Verified 08/28/22 08:46 Physical Exam Vitals: Vital Signs Temp Pulse Resp BP BP Pulse Ox 08/28/22 16:03 58 L 122/74 94 L 08/28/22 15:48 58 L 113/67 93 L 08/28/22 15:33 53 L 110/65 91 L 08/28/22 15:18 57 L 113/65 93 L 08/28/22 15:03 53 L 108/64 92 L 08/28/22 14:33 53 L 114/71 94 L 08/28/22 14:18 98.5 F 53 L 115/68 94 L 08/28/22 14:00 100.0 F H 50 L 18 120/71 96 08/28/22 13:45 51 L 16 125/73 95 08/28/22 13:30 49 L 16 120/73 95 08/28/22 13:15 48 L 16 119/72 95 08/28/22 13:00 52 L 16 116/59 99 08/28/22 12:45 50 L 16 115/57 99 08/28/22 12:32 97.7 F 56 L 16 111/53 97 08/28/22 10:21 49 L 16 130/73 97 08/28/22 10:08 49 L 16 113/67 97 08/28/22 09:01 97.7 F 51 L 18 142/70 96 Intake and Output 08/28/22 08/28/22 08/28/22 06:59 14:59 22:59 Intake Total 1351 Output Total 45 Balance 1306 Intake: IV 1351 Output: Estimated Blood Loss 45 Other: Weight 114.7 kg Results Labs: Abnormal Lab Results - Last 24 Hours (Table) 08/28/22 08/28/22 Range/Units 12:57 17:01 POC Glucose (mg/dL) 122 H 212 H (70-110) mg/dL
[2022-08-28 19:46] VITALS: RESP 16
[2022-08-28 20:22] LABS: Glucose,Whole Blood 290 mg/dL (70-110)
[2022-08-28] MEDS ORDERED: SENNOSIDES-DOCUSATE SODIUM 1 EACH TAB PO SCH (21:00)
[2022-08-28] MEDS ORDERED: ATORVASTATIN 80 MG TAB PO SCH (21:00)
[2022-08-28] MEDS: INSULIN ASPART (NovoLOG) 100 UNIT/ML VIAL SQ SCH (21:36)
[2022-08-28] MEDS: ENOXAPARIN 30 MG/0.3 ML SYRINGE SQ SCH (21:36)
[2022-08-28] MEDS: HYDROcodone/APAP 5-325MG 1 EACH TAB PO PRN (21:51)
[2022-08-29 05:34] LABS: Glucose,Whole Blood 114 mg/dL (70-110)
[2022-08-29] MEDS: INSULIN ASPART (NovoLOG) 100 UNIT/ML VIAL SQ SCH ×2 (05:35→11:21)
[2022-08-29] MEDS: LACTATED RINGERS 1,000 ML IV SCH ×2 (05:45→09:34)
[2022-08-29] MEDS: HYDROcodone/APAP 5-325MG 1 EACH TAB PO PRN (05:48)
[2022-08-29 07:19] VITALS: BP 111/64; PULSE 61; TEMP 99.1
--- NOTE | 2022-08-29 07:27 | P.PN ---
Progress Note - Text Progress Note Date: 08/29/22 (9649) Anesthesiology Postop day 1 status post total knee arthroplasty with adductor canal catheter. Patient doing well. VAS 2 out of 10 at rest which then increases to 6 out of 10 with activity. Gross strength intact in lower extremity. Afebrile. Denies alterations in sensorium. Catheter site intact. Heart regular rate Lungs nonlabored Abdomen nondistended Assessment: Postop day 1 status post total knee arthroplasty with adductor canal catheter Plan: 1.All questions answered. Maintain catheter 2 more days with patient removal at home. Instructions to be given at discharge. 2.This note was dictated using Aprilage software. Please be advised there is a potential for misspellings or errors in fisher sponge hooking.
[2022-08-29] MEDS ORDERED: SPIRONOLACTONE 25 MG TAB PO SCH (09:00)
[2022-08-29] MEDS ORDERED: lisinopriL 5 MG TAB PO SCH (09:00)
[2022-08-29] MEDS ORDERED: PANTOPRAZOLE 40 MG TABLET PO SCH (09:00)
[2022-08-29] MEDS ORDERED: METOPROLOL SUCCINATE (ER) 25 MG TAB.ER.24H PO SCH (09:00)
[2022-08-29] MEDS ORDERED: ASPIRIN 81 MG PO SCH (09:00)
[2022-08-29] MEDS: ENOXAPARIN 30 MG/0.3 ML SYRINGE SQ SCH (09:20)
[2022-08-29] MEDS: HYDROcodone/APAP 7.5-325MG 1 EACH TAB PO PRN (10:57)
[2022-08-29 11:04] LABS: Glucose,Whole Blood 106 mg/dL (70-110)
[2022-08-29 11:04] LABS: Basophils # (A) 0.04 X 10*3/uL (0.00-0.10); Basophils % (A) 0.2 %; Eosinophils # (A) 0.02 X 10*3/uL (0.04-0.35); Eosinophils % (A) 0.1 %; HCT 44.6 % (39.6-50.0); HGB 14.7 d/dL (12.0-15.0); Lymphocytes # (A) 4.29 X 10*3/uL (0.90-5.00); MCH 30.4 pg (27.0-32.0); MCV 92.1 FL (80.0-97.0); Mean Platelet Volume 11.8 FL (9.5-12.2); Monocytes # (A) 1.44 X 10*3/uL (0.20-1.00); NRBC Per 100 WBC 0 X 10*3/uL (0.00-0.01); Neutrophils # (A) 14.58 X 10*3/uL (1.80-7.70); Neutrophils % (A) 71.4 %; Platelet Count 252 X 10*3/uL (140-440); RBC 4.84 X 10*6/uL (4.40-5.60); RDW 13.2 % (11.5-14.5); WBC 20.44 X 10*3/uL (4.50-10.00)
[2022-08-29] MEDS ORDERED: MULTIVITAMINS, THERA 1 EACH TAB PO SCH (12:00)
--- NOTE | 2022-08-29 12:12 | P.PN ---
Subjective Progress Note Date: 08/29/22 Principal diagnosis: status post right total knee arthroplasty patient is examined today at bedside, his is present. He is doing very well at this time. He did ambulate very well with physical therapy including stairs. His pain is well-controlled. He is urinating with no difficulties. He denies headaches, lightheadedness, chest pain or shortness of breath. Objective - Vital Signs Vital signs: Vital Signs Temp 99.1 F 08/29/22 06:45 Pulse 61 08/29/22 06:45 Resp 16 08/29/22 06:45 BP 111/64 08/29/22 06:45 Pulse Ox 94 L 08/29/22 06:45 FiO2 Intake & Output 08/28/22 08/29/22 08/29/22 18:59 06:59 18:59 Intake Total 1351 Output Total 45 Balance 1306 Weight 114.7 kg Intake: IV 1351 Output: Estimated Blood Loss 45 Other: # Voids 2 2 - Exam Right lower extremity: Incision is clean, dry, and intact. The foam dressing is in good position and condition. There is minimal soft tissue swelling and ecchymosis surrounding the medial and lateral aspects of the incision. Calf is soft, no tenderness with palpation. Plantar flexion, dorsiflexion, EHL, FHL are intact. Sensory exam to light touch throughout the extremity is intact, dorsal pedis pulses 2+. - Labs CBC & Chem 7: 08/29/22 06:02 Labs: Abnormal Lab Results - Last 24 Hours (Table) 08/28/22 08/28/22 08/28/22 Range/Units 12:57 17:01 20:21 WBC (4.50-10.00) X 10*3/uL Neutrophils # (1.80-7.70) X 10*3/uL Monocytes # (0.20-1.00) X 10*3/uL Eosinophils # (0.04-0.35) X 10*3/uL POC Glucose (mg/dL) 122 H 212 H 290 H (70-110) mg/dL 08/29/22 08/29/22 Range/Units 05:25 06:02 WBC 20.44 H (4.50-10.00) X 10*3/uL Neutrophils # 14.58 H (1.80-7.70) X 10*3/uL Monocytes # 1.44 H (0.20-1.00) X 10*3/uL Eosinophils # 0.02 L (0.04-0.35) X 10*3/uL POC Glucose (mg/dL) 114 H (70-110) mg/dL Assessment and Plan Assessment: postoperative day 1 status post right total knee arthroplasty Plan: pain control, plan for discharge home on [place] 7.5 mg/325 mg DVT prophylaxis, he will utilize aspirin 81 mg twice a day for 30 days Wound care instructions discussed, this including bandage instructions, icing and elevating and showering Home PT/OT after discharge Medical recommendations Discharge planning: Patient stable for discharge to home today Time with Patient: Less than 30
--- NOTE | 2022-08-29 16:59 | P.PN ---
Subjective Progress Note Date: 08/29/22 Patient has no new complaints, medically stable for discharge Gen: awake, alert HEENT: normocephalic, atraumatic, good hearing acuity, moist mucous membranes Resp: good air exchange, breathing comfortably with no accessory muscle use CVS: good distal perfusion x 4, GI: soft, NTTP, ND : no SPT, no CVAT, monet catheter not present MSK: no pitting edema, no clubbing Neuro: non-focal, moving all extremities Psych: cooperative, euthymic mood Assessment/plan: CAD post stent Diabetes mellitus Dyslipidemia CLL Bradycardia CAD post stent: Continue ASA 81 mg PO QD, Lipitor 80 mg PO QHS, Metoprolol 25 mg PO QD. Diabetes mellitus: ISS. Hypoglycemic precautions. Accuchecks ACHS. Dyslipidemia: Lipitor as above. CLL: Follows Oncologist out of [place]. Bradycardia: Asymtomatic. Discharge medication reconciliation completed by me today Objective - Vital Signs Vital signs: Vital Signs Temp 99.1 F 08/29/22 06:45 Pulse 61 08/29/22 06:45 Resp 16 08/29/22 06:45 BP 111/64 08/29/22 06:45 Pulse Ox 94 L 08/29/22 06:45 FiO2 Intake & Output 08/28/22 08/29/22 08/29/22 18:59 06:59 18:59 Intake Total 1351 Output Total 45 Balance 1306 Weight 114.7 kg Intake: IV 1351 Output: Estimated Blood Loss 45 Other: # Voids 2 2 - Labs CBC & Chem 7: 08/29/22 06:02 Labs: Abnormal Lab Results - Last 24 Hours (Table) 08/28/22 08/28/22 08/29/22 Range/Units 17:01 20:21 05:25 WBC (4.50-10.00) X 10*3/uL Neutrophils # (1.80-7.70) X 10*3/uL Monocytes # (0.20-1.00) X 10*3/uL Eosinophils # (0.04-0.35) X 10*3/uL POC Glucose (mg/dL) 212 H 290 H 114 H (70-110) mg/dL 08/29/22 Range/Units 06:02 WBC 20.44 H (4.50-10.00) X 10*3/uL Neutrophils # 14.58 H (1.80-7.70) X 10*3/uL Monocytes # 1.44 H (0.20-1.00) X 10*3/uL Eosinophils # 0.02 L (0.04-0.35) X 10*3/uL POC Glucose (mg/dL) (70-110) mg/dL
--- NOTE | 2022-08-30 07:44 | P.DS ---
Providers Date of admission: 08/28/2022 Expected date of discharge: 08/29/22 Attending physician: Adriano Egan Consults: 08/28/22 12:09 Consult Physician Routine Consulting Provider: Eyad Bourgeois Consult Reason/Comments: Medical management Do you want consulting provider notified?: Yes Primary care physician: Jose J Clifford Hospital Course: Date of admission: 08/28/2022 Date of discharge: 08/29/2022 Admission diagnosis: Status post right total knee arthroplasty Discharge diagnosis: Same Attending physician: Dr. Egan Surgical procedures: Right total knee arthroplasty Brief history: Patient is a 62-year-old male with a history of progressive primary right knee osteoarthritis. At this point patient has failed conservative treatment measures and has opted to proceed with a elective right total knee arthroplasty. Hospital course: Details of patient's surgery can be found in operative report. Patient tolerated the procedure well and was subsequently transported to orthopedic floor. Patient's orthopeidc and medical care was provided daily. Patient had daily laboratory tests performed for evaluation of overall blood counts. Patient had daily physical therapy to include strengthening range of motion as well as education with walker ambulation. Patient was treated with Lovenox for their postoperative DVT prophylaxis during their inpatient stay. Patient was noted to have a relatively uneventful postoperative course. Patient reported satisfactory pain control with oral pain medications by postoperative day 0. Patient showed satisfactory progress with physical therapy. Patient moved steadily through the program and had no difficulty meeting the goals by postoperative day 1. Given patient's otherwise satisfactory course and having met physical therapy goals, plan is to discharge patient home on postoperative day 1. Discharge condition/disposition: Patient will be discharged home in stable condition. Discharge medications: Instructions are given on resumption of patient's normal daily medications per primary care recommendation, in addition patient will be prescribed [place] 7.5 mg/325 mg, senna S, aspirin 81 mg. Discharge instructions: 1. Wound care and infection precautions, keep incision dry and covered while showering, no lotions, creams, moisturizers. No soaking, tubs, pools, hottubs. Do not scrub over the incision. 2. Weight-bear as tolerated with walker / cane until follow-up. 3. Ice and elevate when necessary. Do not exceed 20 minutes per hour with ice pack. 4. Utilize compression sleeve until seen at first follow up appointment. 5. Visiting nursing care. 6. Home physical therapy including home CPM. 7. Pain meds and anticoagulants per prescription. 8. Pain medication has potential to cause constipation. Increase oral fluid and fiber intake. Contact primary care provider if you have not had a bowel movement within 48 hours after discharge 9. No anti-inflammatory medication until discussed at first post operative visit, this including Motrin, Aleve, Mobic, Diclofenac. 10. Follow up in office at 2 weeks postop with Randall Henson PA-C/Bharat Martin 11. Follow up with your primary care doctor 7-10 days after discharge. 12. Contact [facility] with any questions, . Procedures: Right total knee arthroplasty Patient Condition at Discharge: Good Plan - Discharge Summary Discharge Rx Participant: Yes New Discharge Prescriptions: New Aspirin [Adult Low Dose Aspirin EC] 81 mg PO BID #60 tab Sennosides/Docusate Sodium [Senna-S 8.6-50 mg Tablet] 2 each PO DAILY PRN #30 tablet PRN Reason: Constipation HYDROcodone/APAP 7.5-325MG [[place] 7.5] 1 each PO Q6HR PRN #42 tab PRN Reason: Pain Continue Multivitamins, Thera [Multivitamin (formulary)] 1 tab PO DAILY Omeprazole 20 mg PO DAILY Atorvastatin [Lipitor] 80 mg PO HS #90 tab Nitroglycerin Sl Tabs [Nitrostat] 0.4 mg SUBLINGUAL Q5M PRN #25 tab PRN Reason: Chest Pain Spironolactone [Aldactone] 25 mg PO DAILY #30 tab metFORMIN HCL [Glucophage] 500 mg PO BID lisinopriL [Zestril] 5 mg PO DAILY tab Aspirin EC [Ecotrin Low Dose] 81 mg PO DAILY Metoprolol Succinate [Metoprolol Succinate ER] 25 mg PO DAILY Discharge Medication List Multivitamins, Thera [Multivitamin (formulary)] 1 tab PO DAILY 05/03/18 [History] Omeprazole 20 mg PO DAILY 05/03/18 [History] Atorvastatin [Lipitor] 80 mg PO HS #90 tab 05/05/18 [Rx] Nitroglycerin Sl Tabs [Nitrostat] 0.4 mg SUBLINGUAL Q5M PRN #25 tab 05/06/18 [Rx] Spironolactone [Aldactone] 25 mg PO DAILY #30 tab 05/06/18 [Rx] metFORMIN HCL [Glucophage] 500 mg PO BID 08/30/20 [History] Aspirin EC [Ecotrin Low Dose] 81 mg PO DAILY 01/09/21 [History] lisinopriL [Zestril] 5 mg PO DAILY tab 01/10/21 [Rx] Metoprolol Succinate [Metoprolol Succinate ER] 25 mg PO DAILY 08/23/22 [History] Aspirin [Adult Low Dose Aspirin EC] 81 mg PO BID #60 tab 08/29/22 [Rx] HYDROcodone/APAP 7.5-325MG [[place] 7.5] 1 each PO Q6HR PRN #42 tab 08/29/22 [Rx] Sennosides/Docusate Sodium [Senna-S 8.6-50 mg Tablet] 2 each PO DAILY PRN #30 tablet 08/29/22 [Rx] Follow up Appointment(s)/Referral(s): [facility] [NON-STAFF] - As Needed (Continuous Passive Motion knee machine) [facility], [NON-STAFF] - As Needed Jose J Clifford MD [Primary Care Provider] - 09/07/22 2:00 pm Wale Henson PAC [PHYSICIAN ELEVATOR REPAIRER APPRENTICE] - 09/15/22 2:10 pm Activity/Diet/Wound Care/Special Instructions: Orthopedic Discharge Instructions: 1. Wound care and infection precautions, keep incision dry and covered while showering, no lotions, creams, moisturizers. No soaking, pools, hot tubs. Do not scrub over incision. 2. Weight-bear as tolerated with walker / cane until follow-up. 3. Ice and elevate when necessary. Do not exceed 20 minutes per hour with ice pack. 4. Utilize compression sleeve until seen at first follow up appointment. 5. Pain meds and anticoagulants per prescription. 6. Pain medication has potential to cause constipation. Increase oral fluid and fiber intake. Contact primary care provider if you have not had a bowel movement within 48 hours after discharge. 7. No anti-inflammatory medication until discussed at first post operative visit, this including Motrin, Aleve, Mobic, Diclofenac 8. Follow up in office at 2 weeks postop with Randall Henson PA-C/Bharat Benites PA-C 9. Follow up with your primary care doctor 7-10 days after discharge. 10. Contact [facility] with any questions, . Wound care instructions: 1. Okay to remove surgical dressing as of 09/04/2022 2. Okay to shower directly over the incision after removal of dressing Discharge Disposition: HOME WITH HOME HEALTH SERVICES
== END 2022-08-29 13:52 | disposition home health service (06) | DRG 467 ==
LOC: OR 08:05 → EDSTATUS 10:05 → 4SSUR 12:24 → OBSVTOIN 08-29 09:11 → OR 08-29 09:11 → 4SSUR 08-29 09:11 → UNDODISOB 08-29 13:52
PROVIDERS: ADMIT Orthopaedic Surgery; ATTEND Orthopaedic Surgery
PROC: 0SPC0JZ Removal of Synthetic Substitute from Right Knee Joint, Open Approach (ICD-10-PCS; principal; 2022-08-28 10:05)
PROC: 0SRC0J9 Replacement of Right Knee Joint with Synthetic Substitute, Cemented, Open Approach (ICD-10-PCS; principal; 2022-08-28 10:05)
DX: T84.84XA Pain due to internal orthopedic prosthetic devices, implants and grafts, initial encounter (principal); C91.10 Chronic lymphocytic leukemia of B-cell type not having achieved remission; M17.11 Unilateral primary osteoarthritis, right knee; I10 Essential (primary) hypertension; E78.2 Mixed hyperlipidemia; E11.9 Type 2 diabetes mellitus without complications; K21.9 Gastro-esophageal reflux disease without esophagitis; E03.9 Hypothyroidism, unspecified; I25.10 Atherosclerotic heart disease of native coronary artery without angina pectoris; E78.5 Hyperlipidemia, unspecified; R00.1 Bradycardia, unspecified; Z96.651 Presence of right artificial knee joint; I25.2 Old myocardial infarction; Z95.5 Presence of coronary angioplasty implant and graft; Z79.84 Long term (current) use of oral hypoglycemic drugs; Z79.82 Long term (current) use of aspirin; Z79.899 Other long term (current) drug therapy; Z87.39 Personal history of other diseases of the musculoskeletal system and connective tissue
CPT/HCPCS: 64445; 64448; 64999; 85025